=== PATIENT | female | born 1975 | race Caucasian/White ===

== ENCOUNTER 2017-11-20 14:51 | Inpatient (IN) | payer MEDICAID ==
[2017-11-20] VITALS (16 sets, daily range): BP systolic 81–92; BP diastolic 41–55; PULSE 96–120; RESP 16–24; TEMP 97.2–97.6; O2SAT 93–99
[~2017-11-20] VITALS: Ht 157.5 cm; Wt 65.0 kg
--- NOTE | 2017-11-20 15:23 | PD ---
HPI Chief Complaint: GI Complaint Time Seen by Provider: 15:18 Travel History International Travel<30 days: No Contact w/Intl Traveler<30days: No Traveled to known affect area: No History of Present Illness HPI 42-year-old female presents with her mother for evaluation of abdominal pain and distention, yellowing skin and eyes, lower extremity edema. Symptoms initially started 2-3 weeks ago. She reports that she was hospitalized at [facility] at that time. She reports that she was told that she had hepatitis and pancreatitis. She was eventually discharged with prescriptions for Lasix, oxycodone, Librium, ursodiol, pentoxifyline. Over the past few days her symptoms have worsened in the stool prompted evaluation. She reports generalized abdominal pain, aching, worse when eating. She reports a long-standing history of alcoholism however she has not had any alcohol in the past 2 weeks. She reports that she recently relocated here from [place]. Denies fevers, chills, chest pain, nausea or vomiting, diarrhea or constipation. She has no other complaints at this time. [facility] Past Medical History Diminished Hearing: No Hepatitis: Yes ?: Not Social History Alcohol Use: Yes Tobacco Use: Yes Substance Use: No Allergies-Medications (Allergen,Severity, Reaction): Coded Allergies: No Known Allergies (Unverified , 11/20/17) Reported Meds & Prescriptions Reported Meds & Active Scripts Active Reported Ursodiol 300 Mg Cap 300 Mg PO BID Chlordiazepoxide HCl 10 Mg Capsule 1 Cap PO BID Pentoxifylline ER (Pentoxifylline) 400 Mg Tab 400 Mg PO TID Lasix (Furosemide) 20 Mg Tab 20 Mg PO DAILY Oxycodone (Oxycodone HCl) 5 Mg Cap 5 Mg PO HS PRN Review of Systems Except as stated in HPI: all other systems reviewed are Neg Physical Exam Narrative GENERAL: Chronically ill-appearing female in no acute distress SKIN: Warm and dry. Jaundiced HEAD: Atraumatic. Normocephalic. EYES: Pupils equal and round. Positive scleral icterus. ENT: No nasal bleeding or discharge. Mucous membranes pink and moist. NECK: Trachea midline. No JVD. CARDIOVASCULAR: Regular rate and rhythm. No murmur appreciated. RESPIRATORY: No accessory muscle use. Clear to auscultation. Breath sounds equal bilaterally. GASTROINTESTINAL: Abdomen distended, generalized tenderness to palpation, prominent hepatomegaly noted. MUSCULOSKELETAL: No obvious deformities. 2+ lower extremity edema. NEUROLOGICAL: Awake and alert. No obvious cranial nerve deficits. Motor grossly within normal limits. Normal speech. PSYCHIATRIC: Appropriate mood and affect; insight and judgment normal. Data Data Last Documented VS Vital Signs Date Time Temp Pulse Resp B/P (MAP) Pulse Ox O2 Delivery O2 Flow Rate FiO2 11/20/17 18:14 107 21 89/44 (59) 97 Room Air 11/20/17 14:55 97.6 Orders Orders Complete Blood Count With Diff (11/20/17 15:18) Comprehensive Metabolic Panel (11/20/17 15:18) Lipase (11/20/17 15:18) Prothrombin Time / Inr (Pt) (11/20/17 15:18) Act Partial Throm Time (Ptt) (11/20/17 15:18) Urinalysis - C+S If Indicated (11/20/17 15:18) Ct Abd/Pel W Iv Contrast(Rout) (11/20/17 15:18) Iv Access Insert/Monitor (11/20/17 15:18) Ecg Monitoring (11/20/17 15:18) Oximetry (11/20/17 15:18) Sodium Chloride 0.9% Flush (Ns Flush) (11/20/17 15:30) Chest, Single Ap (11/20/17 15:18) Ed Urine Pregnancytest Poc (11/20/17 15:18) Ammonia (11/20/17 15:18) Sodium Chlorid 0.9% 500 Ml Inj (Ns 500 M (11/20/17 15:30) Electrocardiogram (11/20/17 ) Potassium Chlor 20 Meq Premix (Kcl 20 Me (11/20/17 17:45) Potassium Chloride (Kcl) (11/20/17 17:45) Magnesium (Mg) (11/20/17 16:12) Iohexol 350 Inj (Omnipaque 350 Inj) (11/20/17 19:05) Diet Regular Basic (11/21/17 Breakfast) Diet Regular Basic (11/20/17 Dinner) Admit Order (Ed Use Only) (11/20/17 19:58) Labs Laboratory Tests Test 11/20/17 15:20 11/20/17 16:12 11/20/17 16:50 White Blood Count 14.0 TH/MM3 Red Blood Count 2.68 MIL/MM3 Hemoglobin 10.5 GM/DL Hematocrit 29.0 % Mean Corpuscular Volume 108.3 FL Mean Corpuscular Hemoglobin 39.2 PG Mean Corpuscular Hemoglobin Concent 36.1 % Red Cell Distribution Width 16.2 % Platelet Count 686 TH/MM3 Mean Platelet Volume 8.8 FL Neutrophils (%) (Auto) 83.9 % Lymphocytes (%) (Auto) 10.4 % Monocytes (%) (Auto) 4.8 % Eosinophils (%) (Auto) 0.3 % Basophils (%) (Auto) 0.6 % Neutrophils # (Auto) 11.8 TH/MM3 Lymphocytes # (Auto) 1.5 TH/MM3 Monocytes # (Auto) 0.7 TH/MM3 Eosinophils # (Auto) 0.0 TH/MM3 Basophils # (Auto) 0.1 TH/MM3 CBC Comment AUTO DIFF Differential Total Cells Counted 100 Neutrophils % (Manual) 84 % Band Neutrophils % 3 % Lymphocytes % 8 % Monocytes % 4 % Eosinophils % 1 % Neutrophils # (Manual) 12.2 TH/MM3 Differential Comment FINAL DIFF MANUAL Toxic Granulation 1+ Toxic Vacuolation PRESENT Platelet Estimate HIGH Platelet Morphology Comment NORMAL Spherocytes 2+ Ovalocytes 1+ Prothrombin Time 16.1 SEC Prothromb Time International Ratio 1.6 RATIO Activated Partial Thromboplast Time 36.4 SEC Blood Urea Nitrogen 4 MG/DL Creatinine 0.39 MG/DL Random Glucose 81 MG/DL Total Protein 5.1 GM/DL Albumin 1.6 GM/DL Calcium Level 7.4 MG/DL Magnesium Level 1.9 MG/DL Alkaline Phosphatase 125 U/L Aspartate Amino Transf (AST/SGOT) 139 U/L Alanine Aminotransferase (ALT/SGPT) 39 U/L Total Bilirubin 10.3 MG/DL Sodium Level 132 MEQ/L Potassium Level 2.4 MEQ/L Chloride Level 92 MEQ/L Carbon Dioxide Level 34.1 MEQ/L Anion Gap 6 MEQ/L Estimat Glomerular Filtration Rate 182 ML/MIN Protein Corrected Calcium 8.5 MG/DL Ammonia 27 MCMOL/L Lipase 61 U/L Urine Color DARK-BROWN Urine Turbidity HAZY Urine pH 5.5 Urine Specific [place] 1.011 Urine Protein NEG mg/dL Urine Glucose (UA) NEG mg/dL Urine Ketones NEG mg/dL Urine Occult Blood NEG Urine Nitrite NEG Urine Bilirubin LARGE Urine Urobilinogen 2.0 MG/DL Urine Leukocyte Esterase NEG Urine RBC 1 /hpf Urine WBC LESS THAN 1 /hpf Urine Squamous Epithelial Cells 3 /hpf Urine Amorphous Sediment RARE Urine Bacteria OCC /hpf Urine Hyaline Casts 12 /lpf Urine Mucus MANY /lpf Microscopic Urinalysis Comment CULT NOT INDICATED MDM Medical Decision Making Medical Screen Exam Complete: Yes Emergency Medical Condition: Yes Medical Record Reviewed: Yes Differential Diagnosis Cirrhosis, SBP, dehydration, electrolyte abnormality Narrative Course Patient was placed on ECG monitored pulse oximetry. She was hypotensive on initial examination and therefore IV fluid bolus has been ordered. Lab work, chest x-ray, CT abdomen and pelvis were ordered. CONCLUSION: 1. Prominent hepatomegaly with diffusely abnormal heterogeneous enhancement of the liver parenchyma and pruning of the distal portal vein branches. There is also subtle nodularity of hepatic contour. Overall, findings are most consistent with hepatitis. Differential considerations include diffuse infiltrative hepatocellular carcinoma. Correlation with clinical presentation and alpha-fetoprotein levels is recommended. 2. Mild splenomegaly and trace amount of ascites consistent with some degree of portal hypertension. 1. Lab work notable for diabetes count of 14, hemoglobin 10.5, potassium 2.4, calcium 7.4, total bilirubin 10.3, albumin 1.6. The patient was given IV and oral potassium. Her blood pressure remains persistently low after 1 L of IV fluid. Her os recent blood pressure was 91/54. The patient will be admitted for correction of her electrolytes. Diagnosis Primary Impression: Hypokalemia Additional Impression: Cirrhosis Admitting Information Admitting Physician Requests: Admit You Jovel Nov 20, 2017 15:23
[2017-11-20] MEDS ORDERED: SODIUM CHLORID 0.9% 500 ML INJ 500 ML IV ONE (15:30)
[2017-11-20] MEDS ORDERED: SODIUM CHLORIDE 0.9% FLUSH 10 ML FLUSH IV FLUSH PRN ×2 (15:30→20:45)
--- NOTE | 2017-11-20 15:47 | RADRPT ---
EXAM DATE/TIME: 11/20/2017 15:31 [facility] COMPARISON: No previous studies available for comparison. INDICATIONS : Short of breath MEDICAL HISTORY : Hepatitis. SURGICAL HISTORY : None. ENCOUNTER: Initial ACUITY: 1 day PAIN SCORE: 0/10 LOCATION: chest FINDINGS: A single view of the chest demonstrates the lungs to be symmetrically aerated without evidence of mas s, infiltrate or effusion. The cardiomediastinal contours are unremarkable. Osseous structures are intact. CONCLUSION: The lungs are clear. Benito Whiteside MD on November 20, 2017 at 15:45 Board Certified Radiologist. This report was verified electronically.
[2017-11-20 16:01] LABS: AUTOMATED NEUTROPHIL # 11.8 TH/MM3 (1.8-7.7); BASOPHIL # 0.1 TH/MM3 (0-0.2); BASOPHIL % 0.6 % (0.0-2.0); EOSINOPHIL % 0.3 % (0.0-4.0); HEMOGLOBIN 10.5 GM/DL (11.6-15.3); LYMPH % 10.4 % (9.0-44.0); LYMPHOCYTE # 1.5 TH/MM3 (1.0-4.8); MEAN CELL VOLUME 108.3 FL (80.0-100.0); MEAN CORPUSCULAR HEMOGLOBIN 39.2 PG (27.0-34.0); MEAN PLATELET VOLUME 8.8 FL (7.0-11.0); MONO % 4.8 % (0.0-8.0); MONOCYTE # 0.7 TH/MM3 (0-0.9); NEUT % 83.9 % (16.0-70.0); PLATELET COUNT 686 TH/MM3 (150-450); RED BLOOD COUNT 2.68 MIL/MM3 (4.00-5.30); RED CELL DISTRIBUTION WIDTH 16.2 % (11.6-17.2)
[2017-11-20 16:07] LABS: MEAN CORPUSCULAR HGB CONC 36.1 % (32.0-36.0)
[2017-11-20 16:42] LABS: BANDS 3 % (0-6); LYMPHOCYTES 8 % (9-44); MONOCYTES 4 % (0-8); NEUTROPHIL # MANUAL DIFF 12.2 TH/MM3 (1.8-7.7); POLYS (SEG NEUTROPHILS) 84 % (16-70)
[2017-11-20 16:43] LABS: OVALOCYTES 1+ (NORMAL); SPHEROCYTES 2+ (NORMAL); TOXIC GRANULATION 1+ (NORMAL)
[2017-11-20 16:44] LABS: TOXIC VACUOLATION PRESENT (NONE SEEN)
[2017-11-20 16:59] LABS: INTERNATIONAL NORMALIZED RATIO 1.6 RATIO; PROTHROMBIN TIME - PATIENT 16.1 SEC (9.8-11.6)
[2017-11-20 17:16] LABS: ALBUMIN 1.6 GM/DL (3.4-5.0); BICARBONATE 34.1 MEQ/L (21.0-32.0); CALCIUM 7.4 MG/DL (8.5-10.1); CALCIUM-PROTEIN CORRECTED 8.5 MG/DL (8.5-10.1); CREATININE 0.39 MG/DL (0.50-1.00); TOTAL BILIRUBIN ADULT 10.3 MG/DL (0.2-1.0); TOTAL PROTEIN 5.1 GM/DL (6.4-8.2)
[2017-11-20 17:34] LABS: AMORPHOUS SEDIMENT, URINE RARE; BACTERIA, URINE OCC /hpf; BILIRUBIN, URINE LARGE (NEG); BLOOD, URINE NEG (NEG); GLUCOSE,URINE NEG (NEG); HYALINE CAST, URINE 12 /lpf (RARE); KETONE, URINE NEG (NEG); MUCUS URINE MANY /lpf (OCC); NITRITE,URINE NEG (NEG); PH, URINE 5.5 (5.0-8.5); SQUAMOUS EPITHELIAL CELL URINE 3 /hpf (0-5); URINE COLOR DARK-BROWN (YELLW/STRAW); URINE LEUKOCYTE ESTERASE NEG (NEG)
[2017-11-20] MEDS ORDERED: POTASSIUM CHLORIDE 20 MEQ CONTROLLED RELEASE TAB PO ONE (17:45)
[2017-11-20] MEDS ORDERED: POTASSIUM CHLOR 20 MEQ PREMIX 100 ML IV ONE (17:45)
[2017-11-20] MEDS ORDERED: OXYC1CAP PO (18:50)
[2017-11-20] MEDS ORDERED: CHLO10CA5 PO (18:50)
[2017-11-20] MEDS ORDERED: URSO300C2 PO (18:50)
[2017-11-20] MEDS ORDERED: PENT400T PO (18:50)
[2017-11-20] MEDS ORDERED: FURO1TAB62 PO (18:50)
[2017-11-20] MEDS ORDERED: IOHEXOL 350 MG/ML 10 ML VIAL (for RAD DIAG) IVCONTRAST ONE (19:05)
[2017-11-20 19:11] LABS: MAGNESIUM 1.9 MG/DL (1.5-2.5)
--- NOTE | 2017-11-20 19:43 | RADRPT ---
EXAM DATE/TIME: 11/20/2017 19:00 [facility] COMPARISON: No previous studies available for comparison. INDICATIONS : Abdominal pain, distention and jaundice. IV CONTRAST: 100 cc Omnipaque 350 (iohexol) IV ORAL CONTRAST: No oral contrast ingested. RADIATION DOSE: 6.57 CTDIvol (mGy) MEDICAL HISTORY : Hepatitis. SURGICAL HISTORY : None. ENCOUNTER: Initial ACUITY: 4 - 6 days PAIN SCALE: 7/10 LOCATION: Abdomen. TECHNIQUE: Volumetric scanning of the abdomen and pelvis was performed. Using automated exposure control and ad justment of the mA and/or kV according to patient size, radiation dose was kept as low as reasonably achievable to obtain optimal diagnostic quality images. DICOM format image data is available electro nically for review and comparison. FINDINGS: LOWER LUNGS: Very small right and trace left pleural effusion. Associated airspace disease at the lung bases. LIVER: Diffusely heterogeneous enhancement of the liver with prominent hepatomegaly. There is nodularity of the hepatic contour. The central portal vein is patent although distal branches demonstrate pruning. SPLEEN: Spleen is markedly enlarged measuring up to 12.5 cm. PANCREAS: Within normal limits. KIDNEYS: Subcentimeter cystic lesion in the mid right kidney is too small to fully characterize. Kidneys are o therwise unremarkable. ADRENAL GLANDS: Within normal limits. VASCULAR: There is no aortic aneurysm. BOWEL/MESENTERY: The stomach, small bowel, and colon demonstrate no acute abnormality. Small ascites with fluid predom inantly along the margin of the liver and in the deep pelvis. ABDOMINAL WALL: Within normal limits. RETROPERITONEUM: There is no lymphadenopathy. BLADDER: No wall thickening or mass. REPRODUCTIVE: Within normal limits. INGUINAL: There is no lymphadenopathy or hernia. MUSCULOSKELETAL: Within normal limits for patient age. CONCLUSION: 1. Prominent hepatomegaly with diffusely abnormal heterogeneous enhancement of the liver parenchyma a nd pruning of the distal portal vein branches. There is also subtle nodularity of hepatic contour. Ov erall, findings are most consistent with hepatitis. Differential considerations include diffuse infil trative hepatocellular carcinoma. Correlation with clinical presentation and alpha-fetoprotein levels is recommended. 2. Mild splenomegaly and trace amount of ascites consistent with some degree of portal hypertension. 1. Fer Good MD on November 20, 2017 at 19:36 Board Certified Radiologist. This report was verified electronically.
[2017-11-20] MEDS ORDERED: SODIUM CHLOR 0.9% 1000 ML INJ 1,000 ML IV SCH (20:38)
[2017-11-20] MEDS ORDERED: LACTULOSE SYRUP 20 GM/30 ML CUP PO PRN (20:45)
[2017-11-20] MEDS ORDERED: ONDANSETRON HCL 4 MG/2 ML VIAL IVP PRN (20:45)
[2017-11-20] MEDS ORDERED: POTASSIUM CHLORIDE 25 MEQ EFFERVESCENT TAB PO ONE (20:45)
[2017-11-20] MEDS ORDERED: LORazepam 2 MG TAB PO PRN (20:45)
[2017-11-20] MEDS ORDERED: FLUMAZENIL 0.5 MG/5 ML VIAL IV PUSH PRN (20:45)
[2017-11-20] MEDS ORDERED: LORazepam 1 MG TAB PO PRN (20:45)
[2017-11-20] MEDS ORDERED: LORazepam 2 MG/ML VIAL IV PUSH PRN ×4 (20:45)
[2017-11-20] MEDS ORDERED: NALOXONE HCL 0.4 MG/ML AMP IV PUSH PRN (20:45)
--- NOTE | 2017-11-20 21:23 | HHI.HP ---
HPI Service [facility] Primary Care Physician No Primary Care Physician Admission Diagnosis hypokalemia, cirrhosis Diagnoses: Travel History International Travel<30 Days: No Contact w/Intl Traveler <30 Da: No Traveled to Known Affected Are: No History of Present Illness 42-year-old female with a past medical history significant for alcohol abuse presents to the emergency department for the evaluation of abdominal distention and pain. The patient has a history of pancreatitis with her first episode occurring in July. She was seen in [facility] last week with similar complaints. She believes at the time that she was having a repeat episode of pancreatitis. At [facility] she was diagnosed with alcoholic hepatitis and cirrhosis. Since her discharge, the patient's abdominal distention and jaundice have worsened. She endorses associated anorexia. She complains of foot and ankle edema. She was started on Lasix at [facility] and her potassium today is 2.4. She has not had any alcohol intake since moving in with her mother 2 weeks ago. She was taking scheduled Librium which was prescribed to her at [facility]. Patient denies chest pain or shortness of breath. Denies vomiting or diarrhea. No fever/chills. Review of Systems Except as stated in HPI: all other systems reviewed are Neg Past Family Social History Past Medical History Alcohol abuse Recent diagnosis of alcoholic hepatitis and cirrhosis Past Surgical History Reported Medications Reported Meds & Active Scripts Active Reported Ursodiol 300 Mg Cap 300 Mg PO BID Chlordiazepoxide HCl 10 Mg Capsule 1 Cap PO BID Pentoxifylline ER (Pentoxifylline) 400 Mg Tab 400 Mg PO TID Lasix (Furosemide) 20 Mg Tab 20 Mg PO DAILY Oxycodone (Oxycodone HCl) 5 Mg Cap 5 Mg PO HS PRN Allergies: Coded Allergies: No Known Allergies (Unverified , 11/20/17) Family History Negative for CAD/DM Social History Smokes approximately a half a pack per day. Was drinking 8-10 airplane bottles of liquor with 1-2 glasses of wine daily until 2 weeks ago. Remote history of marijuana. Denies any other illicit drug use Physical Exam Vital Signs Vital Signs Date Time Temp Pulse Resp B/P (MAP) Pulse Ox O2 Delivery O2 Flow Rate FiO2 11/20/17 21:10 107 18 86/52 (63) 99 Nasal Cannula 2.00 11/20/17 18:14 107 21 89/44 (59) 97 Room Air 11/20/17 17:15 102 20 89/52 (64) 97 Room Air 11/20/17 16:15 96 21 92/51 (65) 96 Room Air 11/20/17 15:45 106 91/50 (64) 11/20/17 15:30 110 87/52 (64) 11/20/17 15:19 110 16 84/41 (55) 96 Room Air 11/20/17 14:55 97.6 120 24 81/45 (57) 97 Physical Exam GENERAL: female lying in bed SKIN: No rashes, ecchymoses or lesions. Cool and dry. Jaundiced. HEAD: Atraumatic. Normocephalic. No temporal or scalp tenderness. EYES: Pupils equal round and reactive. Extraocular motions intact. Positive scleral icterus. No injection or drainage. ENT: Nose without bleeding, purulent drainage or septal hematoma. Throat without erythema, tonsillar hypertrophy or exudate. Uvula midline. Airway patent. NECK: Trachea midline. No JVD or lymphadenopathy. Supple, nontender, no meningeal signs. CARDIOVASCULAR: Regular rate and rhythm without murmurs, gallops, or rubs. RESPIRATORY: Clear to auscultation. Breath sounds equal bilaterally. No wheezes , rales, or rhonchi. GASTROINTESTINAL: Abdomen is protuberant and dull to percussion. Diffusely tender to palpation. Positive hepatomegaly. MUSCULOSKELETAL: 2+ edema to the ankle. No calf tenderness. NEUROLOGICAL: Awake and alert. Cranial nerves II through XII intact. Motor and sensory grossly within normal limits. Normal speech. Laboratory Laboratory Tests Test 11/20/17 15:20 11/20/17 16:12 11/20/17 16:50 White Blood Count 14.0 Red Blood Count 2.68 Hemoglobin 10.5 Hematocrit 29.0 Mean Corpuscular Volume 108.3 Mean Corpuscular Hemoglobin 39.2 Mean Corpuscular Hemoglobin Concent 36.1 Red Cell Distribution Width 16.2 Platelet Count 686 Mean Platelet Volume 8.8 Neutrophils (%) (Auto) 83.9 Lymphocytes (%) (Auto) 10.4 Monocytes (%) (Auto) 4.8 Eosinophils (%) (Auto) 0.3 Basophils (%) (Auto) 0.6 Neutrophils # (Auto) 11.8 Lymphocytes # (Auto) 1.5 Monocytes # (Auto) 0.7 Eosinophils # (Auto) 0.0 Basophils # (Auto) 0.1 CBC Comment AUTO DIFF Differential Total Cells Counted 100 Neutrophils % (Manual) 84 Band Neutrophils % 3 Lymphocytes % 8 Monocytes % 4 Eosinophils % 1 Neutrophils # (Manual) 12.2 Differential Comment FINAL DIFF MANUAL Toxic Granulation 1+ Toxic Vacuolation PRESENT Platelet Estimate HIGH Platelet Morphology Comment NORMAL Spherocytes 2+ Ovalocytes 1+ Prothrombin Time 16.1 Prothromb Time International Ratio 1.6 Activated Partial Thromboplast Time 36.4 Blood Urea Nitrogen 4 Creatinine 0.39 Random Glucose 81 Total Protein 5.1 Albumin 1.6 Calcium Level 7.4 Magnesium Level 1.9 Alkaline Phosphatase 125 Aspartate Amino Transf (AST/SGOT) 139 Alanine Aminotransferase (ALT/SGPT) 39 Total Bilirubin 10.3 Sodium Level 132 Potassium Level 2.4 Chloride Level 92 Carbon Dioxide Level 34.1 Anion Gap 6 Estimat Glomerular Filtration Rate 182 Protein Corrected Calcium 8.5 Ammonia 27 Lipase 61 Urine Color DARK-BROWN Urine Turbidity HAZY Urine pH 5.5 Urine Specific [place] 1.011 Urine Protein NEG Urine Glucose (UA) NEG Urine Ketones NEG Urine Occult Blood NEG Urine Nitrite NEG Urine Bilirubin LARGE Urine Urobilinogen 2.0 Urine Leukocyte Esterase NEG Urine RBC 1 Urine WBC LESS THAN 1 Urine Squamous Epithelial Cells 3 Urine Amorphous Sediment RARE Urine Bacteria OCC Urine Hyaline Casts 12 Urine Mucus MANY Microscopic Urinalysis Comment CULT NOT INDICATED Result Diagram: 11/20/17 1520 11/20/17 1612 Caprini VTE Risk Assessment Caprini VTE Risk Assessment: No/Low Risk (score <= 1) Caprini Risk Assessment Model Point Value = 1 Point Value = 2 Point Value = 3 Point Value = 5 Age 41-60 Minor surgery BMI > 25 kg/m2 Swollen legs Varicose veins or History of unexplained or recurrent spontaneous Oral contraceptives or hormone replacement Sepsis (< 1 month) Serious lung disease, including pneumonia (< 1 month) Abnormal pulmonary function Acute myocardial infarction Congestive heart failure (< 1 month) History of inflammatory bowel disease Medical patient at bed rest Age 61-74 Arthroscopic surgery Major open surgery (> 45 min) Laparoscopic surgery (> 45 min) Malignancy Confined to bed (> 72 hours) Immobilizing plaster cast Central venous access Age >= 75 History of VTE Family history of VTE Factor V Leiden Prothrombin [id number] Lupus anticoagulant Anticardiolipin antibodies Elevated serum homocysteine Heparin-induced thrombocytopenia Other congenital or acquired thrombophilia Stroke (< 1 month) Elective arthroplasty Hip, pelvis, or leg fracture Acute spinal cord injury (< 1 month) Prophylaxis Regimen Total Risk Factor Score Risk Level Prophylaxis Regimen 0-1 Low Early ambulation 2 Moderate Order ONE of the following: *Sequential Compression Device (SCD) *Heparin 5000 units SQ BID 3-4 Higher Order ONE of the following medications: *Heparin 5000 units SQ TID *Enoxaparin/Lovenox 40 mg SQ daily (WT < 150 kg, CrCl > 30 mL/min) *Enoxaparin/Lovenox 30 mg SQ daily (WT < 150 kg, CrCl > 10-29 mL/min) *Enoxaparin/Lovenox 30 mg SQ BID (WT < 150 kg, CrCl > 30 mL/min) AND/OR *Sequential Compression Device (SCD) 5 or more Highest Order ONE of the following medications: *Heparin 5000 units SQ TID (Preferred with Epidurals) *Enoxaparin/Lovenox 40 mg SQ daily (WT < 150 kg, CrCl > 30 mL/min) *Enoxaparin/Lovenox 30 mg SQ daily (WT < 150 kg, CrCl > 10-29 mL/min) *Enoxaparin/Lovenox 30 mg SQ BID (WT < 150 kg, CrCl > 30 mL/min) AND *Sequential Compression Device (SCD) Assessment and Plan Assessment and Plan Assessment/plan: 1. Hepatitis/hepatomegaly/transaminitis/jaundice Likely secondary to alcohol use however review of records from [facility] shows that no hepatitis profile has been ordered, hepatitis profile pending CT of the abdomen and pelvis significant for prominent hepatomegaly most consistent with hepatitis however hepatocellular carcinoma cannot be excluded. Trace amount of ascites present. AFP pending Gastroenterology consulted, appreciate recommendations 2. Hypokalemia Patient recently started on Lasix without potassium supplementation Holding Lasix IV and by mouth potassium replacement Monitor BMP 3. Alcohol abuse Patient reports she has not had anything to drink in over 2 weeks however has been on scheduled Librium given to her by [place] protocol Monitor for signs of withdrawal FEN Regular diet Electrolytes: As above Ambulation/SCDs Physician Certification 2 Midnight Certification Type: Admission for Inpatient Services Order for Inpatient Services The services are ordered in accordance with Medicare regulations or non- Medicare payer requirements, as applicable. In the case of services not specified as inpatient-only, they are appropriately provided as inpatient services in accordance with the 2-midnight benchmark. Estimated LOS (days): 2 2 days is the estimated time the patient will need to remain in the hospital, assuming treatment plan goals are met and no additional complications. Post-Hospital Plan: Not yet determined Lashell Mcgarry MD Nov 20, 2017 21:22
[2017-11-20] MEDS: SODIUM CHLORIDE 0.9% FLUSH 10 ML FLUSH IV FLUSH SCH (22:26)
[2017-11-21] VITALS (7 sets, daily range): BP systolic 88–98; BP diastolic 46–58; PULSE 106–120; RESP 17; TEMP 98.2–99.4; O2SAT 92–98
[2017-11-21 06:12] LABS: AUTOMATED NEUTROPHIL # 9.9 TH/MM3 (1.8-7.7); BASOPHIL # 0.2 TH/MM3 (0-0.2); BASOPHIL % 1.3 % (0.0-2.0); EOSINOPHIL # 0.1 TH/MM3 (0-0.4); HEMATOCRIT 25.1 % (35.0-46.0); HEMOGLOBIN 8.7 GM/DL (11.6-15.3); LYMPH % 12.2 % (9.0-44.0); LYMPHOCYTE # 1.5 TH/MM3 (1.0-4.8); MEAN CELL VOLUME 109.7 FL (80.0-100.0); MEAN CORPUSCULAR HGB CONC 34.7 % (32.0-36.0); MONO % 6.8 % (0.0-8.0); MONOCYTE # 0.8 TH/MM3 (0-0.9); NEUT % 78.7 % (16.0-70.0); PLATELET COUNT 447 TH/MM3 (150-450); RED BLOOD COUNT 2.29 MIL/MM3 (4.00-5.30); RED CELL DISTRIBUTION WIDTH 15.6 % (11.6-17.2); WHITE BLOOD COUNT 12.5 TH/MM3 (4.0-11.0)
[2017-11-21 06:35] LABS: ALBUMIN 1.5 GM/DL (3.4-5.0); AST (GOT) 142 U/L (15-37); BICARBONATE 30.2 MEQ/L (21.0-32.0); BLOOD UREA NITROGEN 3 MG/DL (7-18); CALCIUM 7.5 MG/DL (8.5-10.1); CHLORIDE 96 MEQ/L (98-107); GLOMERULAR FILTRATION RATE 177 ML/MIN (>89); GLUCOSE,RANDOM 80 MG/DL (74-106); SODIUM (NA) 135 MEQ/L (136-145)
[2017-11-21 06:45] LABS: ALKALINE PHOSPHATASE 118 U/L (45-117); ALT (GPT) 41 U/L (10-53); TOTAL BILIRUBIN ADULT 10.5 MG/DL (0.2-1.0); TOTAL PROTEIN 5.2 GM/DL (6.4-8.2)
[2017-11-21] MEDS ORDERED: POTASSIUM CHLORIDE 20 MEQ CONTROLLED RELEASE TAB PO ONE ×2 (08:00→14:45)
[2017-11-21] MEDS: THIAMINE HCL 100 MG TAB PO SCH (08:14)
[2017-11-21] MEDS: MULTIVITAMINS/MINERALS THERAPEUTIC TAB PO SCH (08:14)
[2017-11-21] MEDS: FOLIC ACID 1 MG TAB PO SCH (08:14)
[2017-11-21] MEDS: SODIUM CHLORIDE 0.9% FLUSH 10 ML FLUSH IV FLUSH SCH ×2 (08:14→19:42)
--- NOTE | 2017-11-21 08:29 | PD.CONS ---
HPI History of Present Illness This is a 42 year old with no diagnosed medical history. She was recently evaluated by our service at [facility] for complaints of jaundice and abdominal distention. She had an extensive work up as follows: ASMA (+), low titer, YEHUDA, AMA, hepatitis panel, and celiac panel negative. Ceruloplasmin-28 Alpha-1 antitrypsin-201. Due to an elevated ferritin level pt was also tested for hemochromatosis which came back negative. CT abdomen revealed --> Marked hepatomegaly with hepatic steatosis. No normal enhancement of the pancreas with minimal peripancreatic fluid suggesting actue interstitial edematous pancreatitis, pt also had an elevated lipase and hypocalcemia. Labs at time of discharge were more elevated then at present, previously Alk phos-182 AST-186 ALT-37 T bili-9.7. Pt presented to the ER yesterday with complaints of worsening abdominal pain, distention, and jaundice. Pt reports she is anorexic and only eats a few bites of food here and there. She denies any ETOH since last admission, however previously heavy ETOH, reported a pint of vodka daily for the past six month. Also a smoker, half a pack a day. Has never had EGD or colonoscopy. (Jaz Moore) PFSH Past Medical History Alcohol abuse Recent diagnosis of alcoholic hepatitis and cirrhosis Past Surgical History (Jza Moore) Coded Allergies: No Known Allergies (Unverified , 11/20/17) Family History Negative for CAD/DM Social History Smokes approximately a half a pack per day. Was drinking 8-10 airplane bottles of liquor with 1-2 glasses of wine daily until 2 weeks ago. Remote history of marijuana. Denies any other illicit drug use (Jaz Moore) Review of Systems Gastrointestinal: COMPLAINS OF: Abdominal pain, Nausea, Anorexia, Swelling of Abdomen, DENIES: Black stools, Bloody stools, Vomiting, Difficulty Swallowing, Odynophagia, Heartburn, Hematemesis (Jaz Moore) GI Exam Vitals I&O Vital Signs Date Time Temp Pulse Resp B/P (MAP) Pulse Ox O2 Delivery O2 Flow Rate FiO2 11/21/17 04:55 98.4 112 17 93/52 (66) 92 11/21/17 04:00 106 11/20/17 23:57 105 11/20/17 22:40 97.2 112 18 92/42 (59) 93 11/20/17 22:33 110 11/20/17 21:10 107 18 86/52 (63) 99 Nasal Cannula 2.00 11/20/17 20:45 102 89/54 (66) 11/20/17 20:15 104 86/53 (64) 11/20/17 20:00 110 89/54 (66) 11/20/17 19:45 110 91/54 (66) 11/20/17 19:15 110 18 90/55 (67) 11/20/17 18:14 107 21 89/44 (59) 97 Room Air 11/20/17 17:15 102 20 89/52 (64) 97 Room Air 11/20/17 16:15 96 21 92/51 (65) 96 Room Air 11/20/17 15:45 106 91/50 (64) 11/20/17 15:30 110 87/52 (64) 11/20/17 15:19 110 16 84/41 (55) 96 Room Air 11/20/17 14:55 97.6 120 24 81/45 (57) 97 I/O 11/20/17 11/20/17 11/20/17 11/21/17 11/21/17 11/21/17 07:00 15:00 23:00 07:00 15:00 23:00 Intake Total 600 ml 360 ml Balance 600 ml 360 ml Intake Oral 360 ml IV Total 600 ml # Voids 2 4 # Bowel Movements 0 Imaging Last Impressions Chest X-Ray 11/20/178 Signed Impressions: Service Date/Time: October 15:31 - CONCLUSION: The lungs are clear. Benito Whiteside MD Abdomen/Pelvis CT 11/20/17 1518 Signed Impressions: Service Date/Time: October 19:00 - CONCLUSION: 1. Prominent hepatomegaly with diffusely abnormal heterogeneous enhancement of the liver parenchyma and pruning of the distal portal vein branches. There is also subtle nodularity of hepatic contour. Overall, findings are most consistent with hepatitis. Differential considerations include diffuse infiltrative hepatocellular carcinoma. Correlation with clinical presentation and alpha-fetoprotein levels is recommended. 2. Mild splenomegaly and trace amount of ascites consistent with some degree of portal hypertension. 1. Fer Good MD Laboratory Test 11/20/17 15:20 11/20/17 16:12 11/20/17 16:50 11/21/17 05:50 White Blood Count 14.0 TH/MM3 12.5 TH/MM3 Red Blood Count 2.68 MIL/MM3 2.29 MIL/MM3 Hemoglobin 10.5 GM/DL 8.7 GM/DL Hematocrit 29.0 % 25.1 % Mean Corpuscular Volume 108.3 FL 109.7 FL Mean Corpuscular Hemoglobin 39.2 PG 38.0 PG Mean Corpuscular Hemoglobin Concent 36.1 % 34.7 % Red Cell Distribution Width 16.2 % 15.6 % Platelet Count 686 TH/MM3 447 TH/MM3 Mean Platelet Volume 8.8 FL 8.0 FL Neutrophils (%) (Auto) 83.9 % 78.7 % Lymphocytes (%) (Auto) 10.4 % 12.2 % Monocytes (%) (Auto) 4.8 % 6.8 % Eosinophils (%) (Auto) 0.3 % 1.0 % Basophils (%) (Auto) 0.6 % 1.3 % Neutrophils # (Auto) 11.8 TH/MM3 9.9 TH/MM3 Lymphocytes # (Auto) 1.5 TH/MM3 1.5 TH/MM3 Monocytes # (Auto) 0.7 TH/MM3 0.8 TH/MM3 Eosinophils # (Auto) 0.0 TH/MM3 0.1 TH/MM3 Basophils # (Auto) 0.1 TH/MM3 0.2 TH/MM3 CBC Comment AUTO DIFF DIFF FINAL Differential Total Cells Counted 100 Neutrophils % (Manual) 84 % Band Neutrophils % 3 % Lymphocytes % 8 % Monocytes % 4 % Eosinophils % 1 % Neutrophils # (Manual) 12.2 TH/MM3 Differential Comment FINAL DIFF MANUAL Toxic Granulation 1+ Toxic Vacuolation PRESENT Platelet Estimate HIGH Platelet Morphology Comment NORMAL Spherocytes 2+ Ovalocytes 1+ Prothrombin Time 16.1 SEC Prothromb Time International Ratio 1.6 RATIO Activated Partial Thromboplast Time 36.4 SEC Blood Urea Nitrogen 4 MG/DL 3 MG/DL Creatinine 0.39 MG/DL 0.40 MG/DL Random Glucose 81 MG/DL 80 MG/DL Total Protein 5.1 GM/DL 5.2 GM/DL Albumin 1.6 GM/DL 1.5 GM/DL Calcium Level 7.4 MG/DL 7.5 MG/DL Magnesium Level 1.9 MG/DL Alkaline Phosphatase 125 U/L 118 U/L Aspartate Amino Transf (AST/SGOT) 139 U/L 142 U/L Alanine Aminotransferase (ALT/SGPT) 39 U/L 41 U/L Total Bilirubin 10.3 MG/DL 10.5 MG/DL Sodium Level 132 MEQ/L 135 MEQ/L Potassium Level 2.4 MEQ/L 3.2 MEQ/L Chloride Level 92 MEQ/L 96 MEQ/L Carbon Dioxide Level 34.1 MEQ/L 30.2 MEQ/L Anion Gap 6 MEQ/L 9 MEQ/L Estimat Glomerular Filtration Rate 182 ML/MIN 177 ML/MIN Protein Corrected Calcium 8.5 MG/DL Ammonia 27 MCMOL/L Lipase 61 U/L Urine Color DARK-BROWN Urine Turbidity HAZY Urine pH 5.5 Urine Specific [place] 1.011 Urine Protein NEG mg/dL Urine Glucose (UA) NEG mg/dL Urine Ketones NEG mg/dL Urine Occult Blood NEG Urine Nitrite NEG Urine Bilirubin LARGE Urine Urobilinogen 2.0 MG/DL Urine Leukocyte Esterase NEG Urine RBC 1 /hpf Urine WBC LESS THAN 1 /hpf Urine Squamous Epithelial Cells 3 /hpf Urine Amorphous Sediment RARE Urine Bacteria OCC /hpf Urine Hyaline Casts 12 /lpf Urine Mucus MANY /lpf Microscopic Urinalysis Comment CULT NOT INDICATED Tumor Marker Alpha Fetoprotein 7.3 NG/ML Physical Examination HEENT: Normocephalic; atraumatic (+) icterus CHEST: Even/unlabored CARDIAC: RRR ABDOMEN: Distended, firm, mild epigastric TTP, bowel sounds active EXTREMITIES: BLE edema SKIN: (+) jaundice GMAT TUTOR: No focal deficits; alert and oriented times three. (Jaz Moore) Assessment and Plan Plan Assessment: - Transaminitis and imaging consistent with hepatitis, HCC can not be excluded. Recently evaluated by our service for similar symptoms. Work up as follows: ASMA (+), low titer, YEHUDA, Hepatitis panel, AMA, and celiac panel negative. Ceruloplasmin-28 Alpha-1 antitrypsin-201. Due to an elevated ferritin level pt was also tested for hemochromatosis which came back negative. CT abdomen revealed --> Marked hepatomegaly with hepatic steatosis. No normal enhancement of the pancreas with minimal peripancreatic fluid suggesting acute interstitial edematous pancreatitis, pt also had an elevated lipase and hypocalcemia. Labs at time of discharge were more elevated then at present, previously Alk phos-182 AST-186 ALT-37 T bili- 9.7. CT abdomen and pelvis W IV contrast (11/20) --> Prominent hepatomegaly with diffusely abnormal heterogeneous enhancement of the liver parenchyma and pruning of the distal portal vein branches. There is also subtle nodularity of hepatic contour. Overall findings most consistent with hepatitis. Differential consideration include diffuse infiltrative HCC. Mild splenomegaly and trace amount of ascites consistent with some degree of portal HTN. Labs currently: AST-142 ALT-41 Alk phos-118 T bili-10.5 DF-29 - Coagulopathy- INR 1.6 - ETOH abuse- reports no ETOH since being DCd from last week, previously drinking a pint of vodka daily for the past six months - given previous negative liver HEIN this is likely the cause of symptoms. - Mid back pain, between shoulder blades, states chronic since first being diagnosed with pancreatitis in July. Denies acid reflux, heartburn, epigastric pain. Plan: Ursodiol 300mg BID Xifaxan Possible EGD on Friday depending on course AFP pending Monitor labs Further recommendations based on clinical course Pt has been seen and examined by myself and Dr. Nagel and this note is written on his behalf (Jaz Moore) Physician Comments Seen and examined with CHRISTINE, previous hein at [facility] noted. EGD on friday. Consider liver biopsy next week if not better. Suspect etoh related liver disease. Solumederol 40mg ivpb bid. Dr. Pina to follow. Thank you (Fiona Nagel MD) Jaz Moore Nov 21, 2017 08:29 Fiona Nagel MD Nov 21, 2017 19:25
[2017-11-21] MEDS: URSODIOL 300 MG CAP PO SCH ×2 (10:00→19:47)
[2017-11-21 11:47] LABS: HEPATITIS A AB IGM NEGATIVE (NEGATIVE); HEPATITIS B CORE AB IGM NEGATIVE (NEGATIVE); HEPATITIS B SURFACE ANTIGEN NEGATIVE (NEGATIVE); HEPATITIS C AB IgG NEGATIVE (NEGATIVE)
--- NOTE | 2017-11-21 12:58 | HHI.PR ---
Subjective Remarks Follow-up cirrhosis/hepatitis/hypokalemia 11/21/17-patient seen and examined, complains of abdominal pain as well as back pain. No nausea and vomiting. Alert and oriented 3. Objective Vitals Vital Signs Date Time Temp Pulse Resp B/P (MAP) Pulse Ox O2 Delivery O2 Flow Rate FiO2 11/21/17 12:00 99.4 117 17 96/58 (71) 97 11/21/17 08:00 98.2 110 17 88/46 (60) 95 11/21/17 04:55 98.4 112 17 93/52 (66) 92 11/21/17 04:00 106 11/20/17 23:57 105 11/20/17 22:40 97.2 112 18 92/42 (59) 93 11/20/17 22:33 110 11/20/17 21:10 107 18 86/52 (63) 99 Nasal Cannula 2.00 11/20/17 20:45 102 89/54 (66) 11/20/17 20:15 104 86/53 (64) 11/20/17 20:00 110 89/54 (66) 11/20/17 19:45 110 91/54 (66) 11/20/17 19:15 110 18 90/55 (67) 11/20/17 18:14 107 21 89/44 (59) 97 Room Air 11/20/17 17:15 102 20 89/52 (64) 97 Room Air 11/20/17 16:15 96 21 92/51 (65) 96 Room Air 11/20/17 15:45 106 91/50 (64) 11/20/17 15:30 110 87/52 (64) 11/20/17 15:19 110 16 84/41 (55) 96 Room Air 11/20/17 14:55 97.6 120 24 81/45 (57) 97 I/O 11/20/17 11/20/17 11/20/17 11/21/17 11/21/17 11/21/17 07:00 15:00 23:00 07:00 15:00 23:00 Intake Total 600 ml 360 ml Balance 600 ml 360 ml Intake Oral 360 ml IV Total 600 ml # Voids 2 4 # Bowel Movements 0 Result Diagram: 11/21/17 0550 11/21/17 0550 Imaging Last Impressions Chest X-Ray 11/20/17 1518 Signed Impressions: Service Date/Time: October 15:31 - CONCLUSION: The lungs are clear. Benito Whiteside MD Abdomen/Pelvis CT 11/20/17 1518 Signed Impressions: Service Date/Time: October 19:00 - CONCLUSION: 1. Prominent hepatomegaly with diffusely abnormal heterogeneous enhancement of the liver parenchyma and pruning of the distal portal vein branches. There is also subtle nodularity of hepatic contour. Overall, findings are most consistent with hepatitis. Differential considerations include diffuse infiltrative hepatocellular carcinoma. Correlation with clinical presentation and alpha-fetoprotein levels is recommended. 2. Mild splenomegaly and trace amount of ascites consistent with some degree of portal hypertension. 1. Fer Good MD Objective Remarks GENERAL: NAD SKIN: Warm and dry. HEAD: Normocephalic. EYES: No scleral icterus. No injection or drainage. NECK: Supple, trachea midline. No JVD or lymphadenopathy. CARDIOVASCULAR: Regular rate and rhythm without murmurs, gallops, or rubs. RESPIRATORY: Breath sounds equal bilaterally. No accessory muscle use. GASTROINTESTINAL: Abdomen soft, non-tender,distended. +BS MUSCULOSKELETAL: No cyanosis, or edema. BACK:tender without obvious deformity. No CVA tenderness. A/P Assessment and Plan 42-year-old female with 1. Hepatitis/hepatomegaly/transaminitis/jaundice Likely secondary to alcohol use Hepatitis profile pending AFP pending Gastroenterology input appreciated pending EGD next Friday11/24/17 Continue with Ursodial and add Rifaximin 2. Hypokalemia Replace electrolytes and monitor 3. Alcohol abuse Rally pack CIWA protocol Monitor for signs of withdrawal Jose Miguel Panda MD Nov 21, 2017 12:58
--- NOTE | 2017-11-21 13:49 | EKG ---
Date Performed: 11/20/2017 Time Performed: 17:51:01 PTAGE: 42 years EKG: SINUS TACHYCARDIA NONSPECIFIC T-WAVE ABNORMALITY ABNORMAL RHYTHM ECG NO PREVIOUS TRACING 11/20/2017 1351 DOCTOR: Jessica Shabazz Interpretating Date/Time 11/21/2017 13:48:00
[2017-11-21] MEDS ORDERED: IBUPROFEN 600 MG TAB PO ONE (17:00)
[2017-11-21] MEDS: RIFAXIMIN 550 MG TAB PO SCH (19:47)
[2017-11-22] VITALS (10 sets, daily range): BP systolic 85–102; BP diastolic 42–50; PULSE 107–126; RESP 1–18; TEMP 96.9–100.6; O2SAT 93–97
[2017-11-22 07:16] LABS: AUTOMATED NEUTROPHIL # 10.1 TH/MM3 (1.8-7.7); BASOPHIL # 0.2 TH/MM3 (0-0.2); BASOPHIL % 1.6 % (0.0-2.0); EOSINOPHIL # 0.2 TH/MM3 (0-0.4); EOSINOPHIL % 1.3 % (0.0-4.0); HEMATOCRIT 25.3 % (35.0-46.0); HEMOGLOBIN 8.6 GM/DL (11.6-15.3); LYMPH % 12.2 % (9.0-44.0); LYMPHOCYTE # 1.6 TH/MM3 (1.0-4.8); MEAN CELL VOLUME 110.6 FL (80.0-100.0); MEAN CORPUSCULAR HEMOGLOBIN 37.7 PG (27.0-34.0); MEAN CORPUSCULAR HGB CONC 34.1 % (32.0-36.0); MEAN PLATELET VOLUME 8.2 FL (7.0-11.0); MONO % 6.7 % (0.0-8.0); MONOCYTE # 0.9 TH/MM3 (0-0.9); NEUT % 78.2 % (16.0-70.0); PLATELET COUNT 418 TH/MM3 (150-450); RED BLOOD COUNT 2.29 MIL/MM3 (4.00-5.30); RED CELL DISTRIBUTION WIDTH 15.7 % (11.6-17.2); WHITE BLOOD COUNT 12.8 TH/MM3 (4.0-11.0)
[2017-11-22 07:37] LABS: ALBUMIN 1.5 GM/DL (3.4-5.0); ALKALINE PHOSPHATASE 123 U/L (45-117); ALT (GPT) 39 U/L (10-53); AST (GOT) 139 U/L (15-37); BICARBONATE 30.9 MEQ/L (21.0-32.0); BLOOD UREA NITROGEN 4 MG/DL (7-18); CALCIUM 7.9 MG/DL (8.5-10.1); CHLORIDE 100 MEQ/L (98-107); CREATININE 0.43 MG/DL (0.50-1.00); GLOMERULAR FILTRATION RATE 163 ML/MIN (>89); GLUCOSE,RANDOM 74 MG/DL (74-106); SODIUM (NA) 136 MEQ/L (136-145); TOTAL PROTEIN 5.5 GM/DL (6.4-8.2)
[2017-11-22 07:49] LABS: TOTAL BILIRUBIN ADULT 10.4 MG/DL (0.2-1.0)
[2017-11-22] MEDS: THIAMINE HCL 100 MG TAB PO SCH (08:05)
[2017-11-22] MEDS: SODIUM CHLORIDE 0.9% FLUSH 10 ML FLUSH IV FLUSH SCH ×2 (08:05→21:08)
[2017-11-22] MEDS: FOLIC ACID 1 MG TAB PO SCH (08:05)
[2017-11-22] MEDS: RIFAXIMIN 550 MG TAB PO SCH ×2 (08:05→21:09)
[2017-11-22] MEDS: MULTIVITAMINS/MINERALS THERAPEUTIC TAB PO SCH (08:05)
[2017-11-22] MEDS: URSODIOL 300 MG CAP PO SCH ×2 (08:05→21:09)
--- NOTE | 2017-11-22 12:43 | HHI.GIFU ---
Subjective Remarks Patient's resting in the bed Complaints of generalized abdominal tautness and pain, feels it is getting larger Low-grade fever Family in room Able to eat small amounts of food without nausea or vomiting (Lori Diallo) Objective Vitals I&O Vital Signs Date Time Temp Pulse Resp B/P (MAP) Pulse Ox O2 Delivery O2 Flow Rate FiO2 11/22/17 11:50 99.2 119 17 101/46 (64) 97 11/22/17 08:00 97.3 107 17 85/50 (62) 95 11/22/17 07:36 108 11/22/17 07:19 Room Air 11/22/17 04:00 96.9 111 18 87/43 (58) 96 11/22/17 03:40 108 11/22/17 00:00 98.5 111 18 85/45 (58) 95 11/21/17 23:44 112 11/21/17 19:14 119 11/21/17 16:00 99.2 120 17 98/46 (63) 98 I/O 11/21/17 11/21/17 11/21/17 11/22/17 11/22/17 11/22/17 06:59 14:59 22:59 06:59 14:59 22:59 Intake Total 360 ml 480 ml 500 ml 480 ml Balance 360 ml 480 ml 500 ml 480 ml Intake Oral 360 ml 480 ml 500 ml 480 ml # Voids 4 4 2 3 # Bowel Movements 0 3 2 Laboratory Laboratory Tests Test 11/22/17 06:25 White Blood Count 12.8 Red Blood Count 2.29 Hemoglobin 8.6 Hematocrit 25.3 Mean Corpuscular Volume 110.6 Mean Corpuscular Hemoglobin 37.7 Mean Corpuscular Hemoglobin Concent 34.1 Red Cell Distribution Width 15.7 Platelet Count 418 Mean Platelet Volume 8.2 Neutrophils (%) (Auto) 78.2 Lymphocytes (%) (Auto) 12.2 Monocytes (%) (Auto) 6.7 Eosinophils (%) (Auto) 1.3 Basophils (%) (Auto) 1.6 Neutrophils # (Auto) 10.1 Lymphocytes # (Auto) 1.6 Monocytes # (Auto) 0.9 Eosinophils # (Auto) 0.2 Basophils # (Auto) 0.2 CBC Comment DIFF FINAL Differential Comment Blood Urea Nitrogen 4 Creatinine 0.43 Random Glucose 74 Total Protein 5.5 Albumin 1.5 Calcium Level 7.9 Alkaline Phosphatase 123 Aspartate Amino Transf (AST/SGOT) 139 Alanine Aminotransferase (ALT/SGPT) 39 Total Bilirubin 10.4 Sodium Level 136 Potassium Level 4.3 Chloride Level 100 Carbon Dioxide Level 30.9 Anion Gap 5 Estimat Glomerular Filtration Rate 163 Imaging Last Impressions Chest X-Ray 11/20/17 151 Signed Impressions: Service Date/Time: October 15:31 - CONCLUSION: The lungs are clear. Benito Whiteside MD Abdomen/Pelvis CT 11/20/171517 Signed Impressions: Service Date/Time: October 19:00 - CONCLUSION: 1. Prominent hepatomegaly with diffusely abnormal heterogeneous enhancement of the liver parenchyma and pruning of the distal portal vein branches. There is also subtle nodularity of hepatic contour. Overall, findings are most consistent with hepatitis. Differential considerations include diffuse infiltrative hepatocellular carcinoma. Correlation with clinical presentation and alpha-fetoprotein levels is recommended. 2. Mild splenomegaly and trace amount of ascites consistent with some degree of portal hypertension. 1. Fer Good MD Physical Exam HEENT: Pupils round and reactive to light; normocephalic; atraumatic; + jaundice. Lean NECK: Neck is supple, no JVD CHEST: Chest is clear to auscultation and percussion. CARDIAC: Tachycardia ABDOMEN: taut, distended, realized light tenderness especially in right upper quadrant, bowel sounds are present in all four quadrants. EXTREMITIES: No clubbing, cyanosis, or edema. SKIN: Icteric; no rash; CABLE ASSEMBLER: No focal deficits; alert and oriented times three. (Lori Diallo) Assessment and Plan Plan Assessment: History - Transaminitis and imaging consistent with hepatitis, HCC can not be excluded. Recently evaluated by our service for similar symptoms. Work up as follows: ASMA (+), low titer, YEHUDA, Hepatitis panel, AMA, and celiac panel negative. Ceruloplasmin-28 Alpha-1 antitrypsin-201. Due to an elevated ferritin level pt was also tested for hemochromatosis which came back negative. CT abdomen revealed --> Marked hepatomegaly with hepatic steatosis. No normal enhancement of the pancreas with minimal peripancreatic fluid suggesting acute interstitial edematous pancreatitis, pt also had an elevated lipase and hypocalcemia. Labs at time of discharge were more elevated then at present, previously Alk phos-182 AST-186 ALT-37 T bili- 9.7. CT abdomen and pelvis W IV contrast (11/20) --> Prominent hepatomegaly with diffusely abnormal heterogeneous enhancement of the liver parenchyma and pruning of the distal portal vein branches. There is also subtle nodularity of hepatic contour. Overall findings most consistent with hepatitis. Differential consideration include diffuse infiltrative HCC. Mild splenomegaly and trace amount of ascites consistent with some degree of portal HTN. History of pancreatitis back in July with recovery patient states Labs currently: Bilirubin 10.4, A ST 139, ALT 39, alpha-fetoprotein 7.3 - Coagulopathy- INR 1.6 - ETOH abuse- reports no ETOH since being DCd from last week, previously drinking a pint of vodka daily for the past six months - given previous negative liver HEIN this is likely the cause of symptoms. - Mid back pain, feels these symptoms are related to the abdominal bloating and tightness Plan: Measure abdominal girth Ursodiol 300mg BID Xifaxan Probable EGD on Friday AFP 7.3 Monitor labs Further recommendations based on clinical course Pt has been seen and examined by myself and Dr. Urban note is written on his behalf (Lori Diallo) Plan patient was seen and examined, agree with above note plan for EGD and possible liver Bx friday, contniue current care, most likely Etoh related. (Elise Pian MD) Lori Diallo Nov 22, 2017 12:43 Elise Pina MD Nov 22, 2017 18:42
--- NOTE | 2017-11-22 18:41 | HHI.PR ---
Subjective Remarks The patient states that she feels terrible and that she has increasing abdominal pain and distention. The patient denies any fevers, however states has a very low appetite. Patient had a low-grade temp of 100.0. Patient is tachycardic. Objective Vitals Vital Signs Date Time Temp Pulse Resp B/P (MAP) Pulse Ox O2 Delivery O2 Flow Rate FiO2 11/22/17 16:00 100.0 122 1 99/45 (63) 93 11/22/17 11:50 99.2 119 17 101/46 (64) 97 11/22/17 08:00 97.3 107 17 85/50 (62) 95 11/22/17 07:36 108 11/22/17 07:19 Room Air 11/22/17 04:00 96.9 111 18 87/43 (58) 96 11/22/17 03:40 108 11/22/17 00:00 98.5 111 18 85/45 (58) 95 11/21/17 23:44 112 11/21/17 19:14 119 I/O 11/21/17 11/21/17 11/21/17 11/22/17 11/22/17 11/22/17 07:00 15:00 23:00 07:00 15:00 23:00 Intake Total 360 ml 480 ml 500 ml 480 ml 480 ml Balance 360 ml 480 ml 500 ml 480 ml 480 ml Intake Oral 360 ml 480 ml 500 ml 480 ml 480 ml # Voids 4 4 2 3 5 # Bowel Movements 0 3 2 0 Result Diagram: 11/22/17 0625 11/22/17 0625 Imaging Last Impressions Chest X-Ray 11/20/171517 Signed Impressions: Service Date/Time: October 15:31 - CONCLUSION: The lungs are clear. Benito Whiteside MD Abdomen/Pelvis CT 11/20/178 Signed Impressions: Service Date/Time: October 19:00 - CONCLUSION: 1. Prominent hepatomegaly with diffusely abnormal heterogeneous enhancement of the liver parenchyma and pruning of the distal portal vein branches. There is also subtle nodularity of hepatic contour. Overall, findings are most consistent with hepatitis. Differential considerations include diffuse infiltrative hepatocellular carcinoma. Correlation with clinical presentation and alpha-fetoprotein levels is recommended. 2. Mild splenomegaly and trace amount of ascites consistent with some degree of portal hypertension. 1. Fer Good MD Objective Remarks GENERAL: Mild distress due to pain. No respiratory distress. SKIN: (+) Jaundice. HEAD: Normocephalic. EYES: (+) scleral icterus. NECK: Supple, trachea midline. No JVD or lymphadenopathy. CARDIOVASCULAR: Regular rate and rhythm without murmurs, gallops, or rubs. RESPIRATORY: Breath sounds equal bilaterally. No accessory muscle use. GASTROINTESTINAL: Abdomen soft, diffusely tender to palpation, distended with positive ascitic fluid wave on abdominal exam. MUSCULOSKELETAL: No cyanosis, or edema. BACK:tender without obvious deformity. No CVA tenderness. Procedures None Medications and IVs Current Medications Medications (Trade) Dose Ordered Sig/Rebecca Route Start Time Stop Time Status Last Admin (NS Flush) 2 ml UNSCH PRN IV FLUSH 11/20/17 20:45 (NS Flush) 2 ml BID IV FLUSH 11/20/17 21:00 11/22/17 08:05 (Zofran Inj) 4 mg Q6H PRN IVP 11/20/17 20:45 (Narcan Inj) 0.4 mg UNSCH PRN IV PUSH 11/20/17 20:45 (Lactulose Liq) 30 ml DAILY PRN PO 11/20/17 20:45 (Folate) 1 mg DAILY PO 11/21/17 09:00 11/26/17 08:59 11/22/17 08:05 (Vitamin B1) 100 mg DAILY PO 11/21/17 09:00 11/22/17 08:05 (Theragran M Tab) 1 tab DAILY PO 11/21/17 09:00 11/26/17 08:59 11/22/17 08:05 (Romazicon Inj) 0.2 mg Q1M PRN IV PUSH 11/20/17 20:45 (Ativan) 1 mg Q4H PRN PO 11/20/17 20:45 (Ativan Inj) 1 mg Q4H PRN IV PUSH 11/20/17 20:45 (Ativan) 2 mg Q2H PRN PO 11/20/17 20:45 (Ativan Inj) 2 mg Q2H PRN IV PUSH 11/20/17 20:45 (Ativan Inj) 2 mg Q1H PRN IV PUSH 11/20/17 20:45 (Ativan Inj) 2 mg Q15M PRN IV PUSH 11/20/17 20:45 (Actigall) 300 mg Q12HR PO 11/21/17 10:00 11/22/17 08:05 (Xifaxan) 550 mg BID PO 11/21/17 21:00 11/22/17 08:05 A/P Problem List: (1) Hepatitis ICD Code: K75.9 - Inflammatory liver disease, unspecified Plan: Likely secondary to alcohol use. GI consulted. CT abdomen and pelvis W IV contrast (11/20) --> Prominent hepatomegaly with diffusely abnormal heterogeneous enhancement of the liver parenchyma and pruning of the distal portal vein branches. There is also subtle nodularity of hepatic contour. Overall findings most consistent with hepatitis. Differential consideration include diffuse infiltrative HCC. Mild splenomegaly and trace amount of ascites consistent with some degree of portal HTN. Gastroenterology input appreciated pending EGD next Friday11/24/17 Continue with Ursodial and add Rifaximin (2) Transaminitis ICD Code: R74.0 - Nonspecific elevation of levels of transaminase and lactic acid dehydrogenase [LDH] Plan: AST elevated at 139. ALT within normal range. As above. Monitor liver function tests. (3) Jaundice ICD Code: R17 - Unspecified jaundice Plan: Jaundice secondary to liver cirrhosis with an elevated bilirubin of 10.3 which is remaining stable. (4) Hypokalemia ICD Code: E87.6 - Hypokalemia Status: Resolved Plan: Status post replacement. K4.3. (5) Coagulopathy ICD Code: D68.9 - Coagulation defect, unspecified Plan: INR elevated at 1.6. I will place some vitamin K IV (6) Macrocytic anemia ICD Code: D53.9 - Nutritional anemia, unspecified Plan: Acute on chronic anemia. Hemoglobin trended down from 2.5-8.6. Continue to monitor CBC. Monitor INR daily (7) Ascites ICD Code: R18.8 - Other ascites Plan: The patient has worsening abdominal pain. At a low-grade temp with a temperature of 100.0 today. I will start the patient on empiric IV antibiotics. We'll order abdominal paracentesis in a.m. Start on Lasix and spironolactone. (8) SIRS (systemic inflammatory response syndrome) ICD Code: R65.10 - Systemic inflammatory response syndrome (SIRS) of non- infectious origin without acute organ dysfunction Plan: SIRS present on admission, patient with tachycardia and leukocytosis. UA negative. Suspect possible spontaneous bacterial peritonitis. We'll place on empiric IV Rocephin. Assessment and Plan DVT prophylaxis: SCDs, no chemoprophylaxis given risk for patient of having esophageal varices. Discharge Planning For paracentesis in a.m. Problem Qualifiers (1) Ascites: Qualified Codes: K70.31 - Alcoholic cirrhosis of liver with ascites Amado Graham MD Nov 22, 2017 18:41
[2017-11-22] MEDS ORDERED: PHYTONADIONE INJ 10 MG in SODIUM CHLORIDE 0.9% INJ 50 ML IV ONE (18:45)
[2017-11-22] MEDS ORDERED: SPIRONOLACTONE 100 MG TAB PO ONE (19:15)
[2017-11-22] MEDS ORDERED: KETOROLAC TROMETHAMINE 30 MG/ML (IVP) VIAL IV PUSH PRN (19:15)
[2017-11-22] MEDS: KETOROLAC TROMETHAMINE 30 MG/ML (IVP) VIAL IV PUSH PRN (21:08)
[2017-11-22] MEDS: FUROSEMIDE 20 MG TAB PO SCH (21:09)
[2017-11-23] VITALS (8 sets, daily range): BP systolic 84–108; BP diastolic 44–58; PULSE 100–112; RESP 16–20; TEMP 97.9–98.7; O2SAT 93–98
[2017-11-23 08:24] LABS: PROTHROMBIN TIME - PATIENT 13.8 SEC (9.8-11.6)
[2017-11-23 08:26] LABS: AUTOMATED NEUTROPHIL # 11.5 TH/MM3 (1.8-7.7); BASOPHIL # 0.3 TH/MM3 (0-0.2); BASOPHIL % 1.8 % (0.0-2.0); EOSINOPHIL # 0.1 TH/MM3 (0-0.4); EOSINOPHIL % 0.9 % (0.0-4.0); HEMATOCRIT 27.7 % (35.0-46.0); HEMOGLOBIN 9.3 GM/DL (11.6-15.3); LYMPH % 14.5 % (9.0-44.0); LYMPHOCYTE # 2.2 TH/MM3 (1.0-4.8); MEAN CELL VOLUME 110.8 FL (80.0-100.0); MEAN CORPUSCULAR HEMOGLOBIN 37.3 PG (27.0-34.0); MEAN CORPUSCULAR HGB CONC 33.7 % (32.0-36.0); MEAN PLATELET VOLUME 7.9 FL (7.0-11.0); MONO % 6.1 % (0.0-8.0); MONOCYTE # 0.9 TH/MM3 (0-0.9); NEUT % 76.7 % (16.0-70.0); PLATELET COUNT 432 TH/MM3 (150-450); RED CELL DISTRIBUTION WIDTH 15.8 % (11.6-17.2)
[2017-11-23 08:28] LABS: INTERNATIONAL NORMALIZED RATIO 1.4 RATIO
[2017-11-23 08:32] LABS: ALBUMIN 1.6 GM/DL (3.4-5.0); ALT (GPT) 38 U/L (10-53); AST (GOT) 145 U/L (15-37); BICARBONATE 29.5 MEQ/L (21.0-32.0); BLOOD UREA NITROGEN 4 MG/DL (7-18); CALCIUM 8.4 MG/DL (8.5-10.1); CHLORIDE 100 MEQ/L (98-107); CREATININE 0.52 MG/DL (0.50-1.00); GLOMERULAR FILTRATION RATE 131 ML/MIN (>89); GLUCOSE,RANDOM 83 MG/DL (74-106); MAGNESIUM 2.1 MG/DL (1.5-2.5); PHOSPHORUS 2.4 MG/DL (2.5-4.9); SODIUM (NA) 135 MEQ/L (136-145)
[2017-11-23 08:35] LABS: ALKALINE PHOSPHATASE 126 U/L (45-117); TOTAL BILIRUBIN ADULT 9.5 MG/DL (0.2-1.0); TOTAL PROTEIN 5.3 GM/DL (6.4-8.2)
[2017-11-23] MEDS: RIFAXIMIN 550 MG TAB PO SCH ×2 (08:35→19:31)
[2017-11-23] MEDS: THIAMINE HCL 100 MG TAB PO SCH (08:35)
[2017-11-23] MEDS: KETOROLAC TROMETHAMINE 30 MG/ML (IVP) VIAL IV PUSH PRN ×2 (08:35→14:50)
[2017-11-23] MEDS: FOLIC ACID 1 MG TAB PO SCH (08:35)
[2017-11-23] MEDS: MULTIVITAMINS/MINERALS THERAPEUTIC TAB PO SCH (08:35)
[2017-11-23] MEDS: URSODIOL 300 MG CAP PO SCH ×2 (08:35→19:31)
[2017-11-23] MEDS: SODIUM CHLORIDE 0.9% FLUSH 10 ML FLUSH IV FLUSH SCH ×2 (08:36→19:32)
[2017-11-23] MEDS: FUROSEMIDE 20 MG TAB PO SCH (08:38)
[2017-11-23] MEDS: SPIRONOLACTONE 100 MG TAB PO SCH (08:38)
--- NOTE | 2017-11-23 08:40 | RADRPT ---
EXAM DATE/TIME: 11/23/2017 07:57 [place] COMPARISON: No previous studies available for comparison. INDICATIONS : Ascites. MEDICAL HISTORY : Gastroesophageal reflux disease. Hepatitis. Uterine fibroids. Numbness. Back pain. Anxiety. SURGICAL HISTORY : section. ENCOUNTER: Initial ACUITY: 1 day PAIN SCORE: 3/10 LOCATION: Abdomen. AREA EVALUATED: Abdominal quadrants. FINDINGS: Imaging of the abdomen and pelvis was performed to evaluate for ascites for possible paracentesis. T here is mild ascites seen from the liver and in the midline of the pelvis. This does not appear to be a large volume for aspiration. CONCLUSION: Mild ascites. Lei Lynn MD on November 23, 2017 at 8:37 Board Certified Radiologist. This report was verified electronically.
--- NOTE | 2017-11-23 13:10 | HHI.GIFU ---
Subjective Remarks Resting in the bed head of bed elevated at 60 She is eating hamburger, appetite fair but states that she will be in pain after eating. Still has abdominal bloating Abdominal girth 41. Checked today for ascites but no planned paracentesis for now (Lori Diallo) Objective Vitals I&O Vital Signs Date Time Temp Pulse Resp B/P (MAP) Pulse Ox O2 Delivery O2 Flow Rate FiO2 11/23/17 12:00 98.2 106 18 87/58 (68) 94 11/23/17 11:08 110 11/23/17 08:00 98.3 109 17 84/52 (63) 95 11/23/17 03:53 100 11/23/17 00:00 98.7 111 20 89/44 (59) 96 11/22/17 23:52 111 11/22/17 21:05 94 Nasal Cannula 2.00 11/22/17 20:00 100.6 126 18 102/42 (62) 96 11/22/17 19:43 126 11/22/17 16:00 100.0 122 1 99/45 (63) 93 I/O 11/22/17 11/22/17 11/22/17 11/23/17 11/23/17 11/23/17 07:00 15:00 23:00 07:00 15:00 23:00 Intake Total 480 ml 480 ml 531 ml 240 ml Balance 480 ml 480 ml 531 ml 240 ml Intake Oral 480 ml 480 ml 480 ml 240 ml IV Total 51 ml # Voids 3 5 2 2 # Bowel Movements 2 0 1 Laboratory Laboratory Tests Test 11/23/17 07:53 White Blood Count 15.0 Red Blood Count 2.50 Hemoglobin 9.3 Hematocrit 27.7 Mean Corpuscular Volume 110.8 Mean Corpuscular Hemoglobin 37.3 Mean Corpuscular Hemoglobin Concent 33.7 Red Cell Distribution Width 15.8 Platelet Count 432 Mean Platelet Volume 7.9 Neutrophils (%) (Auto) 76.7 Lymphocytes (%) (Auto) 14.5 Monocytes (%) (Auto) 6.1 Eosinophils (%) (Auto) 0.9 Basophils (%) (Auto) 1.8 Neutrophils # (Auto) 11.5 Lymphocytes # (Auto) 2.2 Monocytes # (Auto) 0.9 Eosinophils # (Auto) 0.1 Basophils # (Auto) 0.3 CBC Comment DIFF FINAL Differential Comment Prothrombin Time 13.8 Prothromb Time International Ratio 1.4 Activated Partial Thromboplast Time 32.8 Blood Urea Nitrogen 4 Creatinine 0.52 Random Glucose 83 Total Protein 5.3 Albumin 1.6 Calcium Level 8.4 Phosphorus Level 2.4 Magnesium Level 2.1 Alkaline Phosphatase 126 Aspartate Amino Transf (AST/SGOT) 145 Alanine Aminotransferase (ALT/SGPT) 38 Lactate Dehydrogenase 189 Total Bilirubin 9.5 Sodium Level 135 Potassium Level 4.2 Chloride Level 100 Carbon Dioxide Level 29.5 Anion Gap 6 Estimat Glomerular Filtration Rate 131 Imaging Last Impressions Abdomen Ultrasound 11/23/17 0600 Signed Impressions: Service Date/Time: Thursday, November 23, 2017 07:57 - CONCLUSION: Mild ascites. Lei Lynn MD Chest X-Ray 11/20/171517 Signed Impressions: Service Date/Time: October 15:31 - CONCLUSION: The lungs are clear. Benito Whiteside MD Abdomen/Pelvis CT 11/20/171517 Signed Impressions: Service Date/Time: October 19:00 - CONCLUSION: 1. Prominent hepatomegaly with diffusely abnormal heterogeneous enhancement of the liver parenchyma and pruning of the distal portal vein branches. There is also subtle nodularity of hepatic contour. Overall, findings are most consistent with hepatitis. Differential considerations include diffuse infiltrative hepatocellular carcinoma. Correlation with clinical presentation and alpha-fetoprotein levels is recommended. 2. Mild splenomegaly and trace amount of ascites consistent with some degree of portal hypertension. 1. Fer Good MD Physical Exam HEENT: Pupils round and reactive to light; normocephalic; atraumatic; + jaundice. NECK: Neck is supple, no JVD CHEST: Chest is clear , but low volumes CARDIAC: Controlled heart rate ABDOMEN: taut, distended, realized light tenderness especially in right upper quadrant, bowel sounds are present in all four quadrants. EXTREMITIES: No clubbing, cyanosis, or edema. 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 Mild anxiety (Lori Diallo) Assessment and Plan Plan Plan Assessment: History - Transaminitis and imaging consistent with hepatitis, HCC can not be excluded. Probable alcohol-related. Hepatitis panel negative. Due to an elevated ferritin level pt was also tested for hemochromatosis which came back negative. CT abdomen revealed --> Marked hepatomegaly with hepatic steatosis. No normal enhancement of the pancreas with minimal peripancreatic fluid suggesting acute interstitial edematous pancreatitis, CT abdomen and pelvis W IV contrast (11/20) --> Prominent hepatomegaly with diffusely abnormal heterogeneous enhancement of the liver parenchyma and pruning of the distal portal vein branches. There is also subtle nodularity of hepatic contour. Overall findings most consistent with hepatitis. Differential consideration include diffuse infiltrative HCC. Mild splenomegaly and trace amount of ascites consistent with some degree of portal HTN. History of pancreatitis back in July with recovery patient states Labs currently: Hemoglobin 9.3, elevated WBC count 15,000 - Coagulopathy- INR 1.4 mild trending down - ETOH abuse- reports no ETOH since being DCd from last week, previously drinking a pint of vodka daily for the past six months - given previous negative liver HEIN this is likely the cause of symptoms. She states she will never drink again and wants to get well. Checked for marked ascites to 2017, continues to be mild fluid amount. No recommendation for paracentesis. Plan: Measure abdominal girth 41 today. Ursodiol 300mg BID Xifaxan EGD on Friday and biopsy Consent Nothing by mouth at midnight Monitor labs Supportive care Further recommendations based on clinical course Pt has been seen and examined by myself and Dr. Urban note is written on his behalf (Lori Diallo) Plan Patient was seen and examined, agree with above-noted, we will plan upper endoscopy tomorrow, according to ultrasound there was not enough fluid to tap according to her (Elise Pina MD) Lori Diallo Nov 23, 2017 13:10 Elise Pina MD Nov 23, 2017 17:14
[2017-11-23] MEDS ORDERED: cefTRIAXone INJ 2,000 MG in SODIUM CHLORIDE 0.9% INJ 100 ML IV SCH (16:00)
[2017-11-23] MEDS ORDERED: KETOROLAC TROMETHAMINE 30 MG/ML (IVP) VIAL IV PUSH PRN (16:15)
--- NOTE | 2017-11-23 16:16 | HHI.PR ---
Subjective Remarks Patient c/o midthoracic pain. Still c/o of abdominal pain 8-9/10 in intensity, complaints of abdominal distention. Denies nausea, vomiting or abdominal pain. Denies melena or hematochezia. The patient states that she has has been having diarrhea for the past few days. Objective Vitals Vital Signs Date Time Temp Pulse Resp B/P (MAP) Pulse Ox O2 Delivery O2 Flow Rate FiO2 11/23/17 12:00 98.2 106 18 87/58 (68) 94 11/23/17 11:08 110 11/23/17 08:00 98.3 109 17 84/52 (63) 95 11/23/17 03:53 100 11/23/17 00:00 98.7 111 20 89/44 (59) 96 11/22/17 23:52 111 11/22/17 21:05 94 Nasal Cannula 2.00 11/22/17 20:00 100.6 126 18 102/42 (62) 96 11/22/17 19:43 126 I/O 11/22/17 11/22/17 11/22/17 11/23/17 11/23/17 11/23/17 07:00 15:00 23:00 07:00 15:00 23:00 Intake Total 480 ml 480 ml 531 ml 240 ml 480 ml Balance 480 ml 480 ml 531 ml 240 ml 480 ml Intake Oral 480 ml 480 ml 480 ml 240 ml 480 ml IV Total 51 ml # Voids 3 5 2 2 4 # Bowel Movements 2 0 1 1 Result Diagram: 11/23/17 0753 11/23/17 0753 Imaging Last 72 hours Impressions Abdomen Ultrasound 11/23/17 0600 Signed Impressions: Service Date/Time: Thursday, November 23, 2017 07:57 - CONCLUSION: Mild ascites. Lei Lynn MD Objective Remarks GENERAL: Mild distress due to pain. No respiratory distress. SKIN: (+) Jaundice. HEAD: Normocephalic. EYES: (+) scleral icterus. NECK: Supple, trachea midline. No JVD or lymphadenopathy. CARDIOVASCULAR: Regular rate and rhythm without murmurs, gallops, or rubs. RESPIRATORY: Breath sounds equal bilaterally. No accessory muscle use. GASTROINTESTINAL: Abdomen soft, diffusely tender to palpation, distended with positive ascitic fluid wave on abdominal exam. MUSCULOSKELETAL: No cyanosis, or edema. BACK:tender without obvious deformity. No CVA tenderness. Procedures None Medications and IVs Current Medications Medications (Trade) Dose Ordered Sig/Rebecca Route Start Time Stop Time Status Last Admin (NS Flush) 2 ml UNSCH PRN IV FLUSH 11/20/17 20:45 (NS Flush) 2 ml BID IV FLUSH 11/20/17 21:00 11/23/17 08:36 (Zofran Inj) 4 mg Q6H PRN IVP 11/20/17 20:45 (Narcan Inj) 0.4 mg UNSCH PRN IV PUSH 11/20/17 20:45 (Lactulose Liq) 30 ml DAILY PRN PO 11/20/17 20:45 (Folate) 1 mg DAILY PO 11/21/17 09:00 11/26/17 08:59 11/23/17 08:35 (Vitamin B1) 100 mg DAILY PO 11/21/17 09:00 11/23/17 08:35 (Theragran M Tab) 1 tab DAILY PO 11/21/17 09:00 11/26/17 08:59 11/23/17 08:35 (Romazicon Inj) 0.2 mg Q1M PRN IV PUSH 11/20/17 20:45 (Ativan) 1 mg Q4H PRN PO 11/20/17 20:45 (Ativan Inj) 1 mg Q4H PRN IV PUSH 11/20/17 20:45 (Ativan) 2 mg Q2H PRN PO 11/20/17 20:45 (Ativan Inj) 2 mg Q2H PRN IV PUSH 11/20/17 20:45 (Ativan Inj) 2 mg Q1H PRN IV PUSH 11/20/17 20:45 (Ativan Inj) 2 mg Q15M PRN IV PUSH 11/20/17 20:45 (Actigall) 300 mg Q12HR PO 11/21/17 10:00 11/23/17 08:35 (Xifaxan) 550 mg BID PO 11/21/17 21:00 11/23/17 08:35 (Aldactone) 100 mg DAILY PO 11/23/17 09:00 (Lasix) 20 mg DAILY PO 11/22/17 19:15 11/22/17 21:09 (Vitamin K Inj) 10 mg DAILY SQ 11/23/17 15:30 11/23/17 16:31 (Oramorph Sr) 15 mg Q12HR PO 11/23/17 21:00 (Ultram) 50 mg Q6H PRN PO 11/23/17 16:15 11/23/17 16:37 (Toradol Inj) 30 mg Q6H PRN IV PUSH 11/23/17 16:15 11/28/17 16:14 A/P Problem List: (1) Hepatitis ICD Code: K75.9 - Inflammatory liver disease, unspecified Plan: Likely secondary to alcohol use. GI consulted. CT abdomen and pelvis W IV contrast (11/20) --> Prominent hepatomegaly with diffusely abnormal heterogeneous enhancement of the liver parenchyma and pruning of the distal portal vein branches. There is also subtle nodularity of hepatic contour. Overall findings most consistent with hepatitis. Differential consideration include diffuse infiltrative HCC. Mild splenomegaly and trace amount of ascites consistent with some degree of portal HTN. Gastroenterology input appreciated pending EGD next Friday11/24/17 Continue with Ursodiol and add Rifaximin 11/23 for EGD and biopsy in am. (2) Transaminitis ICD Code: R74.0 - Nonspecific elevation of levels of transaminase and lactic acid dehydrogenase [LDH] Plan: AST elevated at 145. ALT within normal range. As above. Monitor liver function tests. (3) Jaundice ICD Code: R17 - Unspecified jaundice Plan: Jaundice secondary to liver cirrhosis with an elevated bilirubin of 10.3 which is remaining stable. 11/23 bilirubin is trending down to 9.5. Continue to monitor bilirrubin. (4) Hypokalemia ICD Code: E87.6 - Hypokalemia Status: Resolved Plan: Status post replacement. K4.2. (5) Coagulopathy ICD Code: D68.9 - Coagulation defect, unspecified Plan: sp IV vitamin K 11/23 INR trending down from 1.6-1.4. Will place on subcutaneous vitamin K. Continue to monitor PT and INR. (6) Macrocytic anemia ICD Code: D53.9 - Nutritional anemia, unspecified Plan: Acute on chronic anemia. Hemoglobin trended down from 2.5-8.6. Continue to monitor CBC. Monitor INR daily (7) Ascites ICD Code: R18.8 - Other ascites Plan: 11/23 status post low-grade temperature of 100.0 on 11/22. Will hold off on starting empiric IV antibiotics given that the patient did not have much ascites and abdomen is very distended with diarrhea. Will check C. difficile toxin PCR. Abdominal paracentesis was not done since patient did not have enough fluid on ultrasound. Continue Lasix and spironolactone. (8) SIRS (systemic inflammatory response syndrome) ICD Code: R65.10 - Systemic inflammatory response syndrome (SIRS) of non- infectious origin without acute organ dysfunction Plan: SIRS present on admission, patient with tachycardia and leukocytosis. UA negative. 11/23 check C. difficile toxin PCR since patient has a very distended abdomen and diarrhea. If C. difficile is negative then will start the patient on empiric IV Rocephin if the fever continues. (9) Abdominal pain ICD Code: R10.9 - Unspecified abdominal pain Plan: Abdominal pain likely secondary to hepatitis and abdominal distention. Check c diff toxin PCR Patint currently on IV Toradol however still with pain. Will start patient on Oramorph 15 mg p.o. twice daily, tramadol as needed for pain and IV Toradol as needed for breakthrough pain. Assessment and Plan DVT prophylaxis: SCDs, no chemoprophylaxis given risk for patient of having esophageal varices. Discharge Planning For EGD and biopsy tomorrow. Continue to monitor on the medical floor. Problem Qualifiers (1) Ascites: Qualified Codes: K70.31 - Alcoholic cirrhosis of liver with ascites (2) Abdominal pain: Qualified Codes: R10.84 - Generalized abdominal pain Amado Graham MD Nov 23, 2017 16:16
[2017-11-23] MEDS: PHYTONADIONE 10 MG/ML VIAL SQ SCH (16:31)
[2017-11-23] MEDS: traMADol HCL 50 MG TAB PO PRN (16:37)
[2017-11-23] MEDS: MORPHINE SULFATE 15 MG CONTROLLED RELEASE TAB PO SCH (19:31)
[2017-11-23] MEDS ORDERED: diphenhydrAMINE HCL 50 MG CAP PO ONE (21:00)
[2017-11-24 02:27] VITALS: PULSE 103
[2017-11-24 04:00] VITALS: BP 89/51; PULSE 105; RESP 16; TEMP 98.2; O2SAT 93
[2017-11-24] MEDS: traMADol HCL 50 MG TAB PO PRN ×2 (05:22→19:43)
[2017-11-24 05:54] LABS: AUTOMATED NEUTROPHIL # 12.4 TH/MM3 (1.8-7.7); BASOPHIL # 0.3 TH/MM3 (0-0.2); BASOPHIL % 1.6 % (0.0-2.0); EOSINOPHIL # 0.1 TH/MM3 (0-0.4); EOSINOPHIL % 0.9 % (0.0-4.0); HEMATOCRIT 26.7 % (35.0-46.0); LYMPH % 14.5 % (9.0-44.0); LYMPHOCYTE # 2.4 TH/MM3 (1.0-4.8); MEAN CELL VOLUME 109.9 FL (80.0-100.0); MEAN CORPUSCULAR HGB CONC 33.6 % (32.0-36.0); MEAN PLATELET VOLUME 7.7 FL (7.0-11.0); MONO % 6.4 % (0.0-8.0); NEUT % 76.6 % (16.0-70.0); PLATELET COUNT 391 TH/MM3 (150-450); RED BLOOD COUNT 2.43 MIL/MM3 (4.00-5.30); RED CELL DISTRIBUTION WIDTH 15.6 % (11.6-17.2); WHITE BLOOD COUNT 16.2 TH/MM3 (4.0-11.0)
[2017-11-24 05:57] LABS: INTERNATIONAL NORMALIZED RATIO 1.3 RATIO; PROTHROMBIN TIME - PATIENT 13.3 SEC (9.8-11.6)
[2017-11-24 06:17] LABS: ALBUMIN 1.6 GM/DL (3.4-5.0); AST (GOT) 141 U/L (15-37); BICARBONATE 30.3 MEQ/L (21.0-32.0); BLOOD UREA NITROGEN 8 MG/DL (7-18); CALCIUM 8.1 MG/DL (8.5-10.1); CHLORIDE 97 MEQ/L (98-107); CREATININE 0.75 MG/DL (0.50-1.00); GLOMERULAR FILTRATION RATE 86 ML/MIN (>89); GLUCOSE,RANDOM 68 MG/DL (74-106); MAGNESIUM 2.1 MG/DL (1.5-2.5); PHOSPHORUS 2.5 MG/DL (2.5-4.9); SODIUM (NA) 133 MEQ/L (136-145)
[2017-11-24 06:29] LABS: ALKALINE PHOSPHATASE 119 U/L (45-117); ALT (GPT) 39 U/L (10-53); TOTAL BILIRUBIN ADULT 9.9 MG/DL (0.2-1.0); TOTAL PROTEIN 5.3 GM/DL (6.4-8.2)
[2017-11-24 08:00] VITALS: BP 85/47; PULSE 106; RESP 14; TEMP 97.3; O2SAT 90
[2017-11-24] MEDS: SPIRONOLACTONE 100 MG TAB PO SCH (08:09)
[2017-11-24] MEDS: URSODIOL 300 MG CAP PO SCH ×2 (08:09→19:42)
[2017-11-24] MEDS: FOLIC ACID 1 MG TAB PO SCH (08:09)
[2017-11-24] MEDS: FUROSEMIDE 20 MG TAB PO SCH (08:10)
[2017-11-24] MEDS: MULTIVITAMINS/MINERALS THERAPEUTIC TAB PO SCH (08:10)
[2017-11-24] MEDS: RIFAXIMIN 550 MG TAB PO SCH ×2 (08:10→19:42)
[2017-11-24] MEDS: PHYTONADIONE 10 MG/ML VIAL SQ SCH (08:10)
[2017-11-24] MEDS: THIAMINE HCL 100 MG TAB PO SCH (08:10)
[2017-11-24 08:15] VITALS: PULSE 105
[2017-11-24] MEDS: MORPHINE SULFATE 15 MG CONTROLLED RELEASE TAB PO SCH (08:35)
[2017-11-24] MEDS: SODIUM CHLORIDE 0.9% FLUSH 10 ML FLUSH IV FLUSH SCH ×2 (09:00→19:47)
[2017-11-24] MEDS ORDERED: cefTRIAXone INJ 2,000 MG in SODIUM CHLORIDE 0.9% INJ 100 ML IV SCH ×2 (11:00→17:00)
[2017-11-24] MEDS ORDERED: PROPOFOL 200 MG/20 ML AMP IV ONE (12:00)
[2017-11-24] MEDS ORDERED: DO NOT ADM ANY ANTICOAGULANT DRUGS PRN (12:10)
--- NOTE | 2017-11-24 12:10 | PD.PROCEDR ---
GI Procedure PROCEDURE PERFORMED Upper endoscopy with biopsy INDICATION FOR PROCEDURE History of cirrhosis, anemia PROCEDURE: The procedure, risks and benefits were discussed with Ms. Paz and informed consent was obtained. Anesthesia sedated her with Diprivan. She was placed in the left lateral decubitus position. EGD: The Pentax videoscope was introduced through the oropharynx and advanced to the second portion of the duodenum under direct visualization. Retroflexion was performed in the stomach. Biopsy from the distal esophagus for irregular Z line , biopsy from the antrum for mild gastritis ESTIMATED BLOOD LOSS: None SPECIMENS REMOVED: Distal esophagus at the GE junction Antrum COMPLICATIONS: None IMPRESSION: Irregular Z line biopsy was done Mild gastritis biopsy from the antrum Gastropathy in the stomach from portal hypertension PLAN: Nothing by mouth until after the liver biopsy if plan today Await biopsy results No alcohol Protonix 40 mg daily Elise Pina MD Nov 24, 2017 12:10
--- NOTE | 2017-11-24 12:16 | HHI.GIFU ---
Subjective Remarks Patient is laying in bed, seems to be comfortable, no significant new issue, still jaundice Objective Vitals I&O Vital Signs Date Time Temp Pulse Resp B/P (MAP) Pulse Ox O2 Delivery O2 Flow Rate FiO2 11/24/17 08:15 105 11/24/17 08:00 97.3 106 14 85/47 (60) 90 11/24/17 07:20 Room Air 11/24/17 04:00 98.2 105 16 89/51 (64) 93 11/24/17 02:27 103 11/23/17 23:46 98.1 109 16 86/48 (61) 93 11/23/17 19:10 98.0 110 16 92/51 (65) 94 11/23/17 17:37 18 11/23/17 16:00 97.9 112 18 108/55 (72) 98 I/O 11/23/17 11/23/17 11/23/17 11/24/17 11/24/17 11/24/17 07:00 15:00 23:00 07:00 15:00 23:00 Intake Total 240 ml 480 ml 720 ml 100 ml Balance 240 ml 480 ml 720 ml 100 ml Intake Oral 240 ml 480 ml 720 ml Other 100 ml # Voids 2 4 3 # Bowel Movements 1 1 0 Laboratory Laboratory Tests Test 11/24/17 05:12 White Blood Count 16.2 Red Blood Count 2.43 Hemoglobin 9.0 Hematocrit 26.7 Mean Corpuscular Volume 109.9 Mean Corpuscular Hemoglobin 37.0 Mean Corpuscular Hemoglobin Concent 33.6 Red Cell Distribution Width 15.6 Platelet Count 391 Mean Platelet Volume 7.7 Neutrophils (%) (Auto) 76.6 Lymphocytes (%) (Auto) 14.5 Monocytes (%) (Auto) 6.4 Eosinophils (%) (Auto) 0.9 Basophils (%) (Auto) 1.6 Neutrophils # (Auto) 12.4 Lymphocytes # (Auto) 2.4 Monocytes # (Auto) 1.0 Eosinophils # (Auto) 0.1 Basophils # (Auto) 0.3 CBC Comment DIFF FINAL Differential Comment Prothrombin Time 13.3 Prothromb Time International Ratio 1.3 Blood Urea Nitrogen 8 Creatinine 0.75 Random Glucose 68 Total Protein 5.3 Albumin 1.6 Calcium Level 8.1 Phosphorus Level 2.5 Magnesium Level 2.1 Alkaline Phosphatase 119 Aspartate Amino Transf (AST/SGOT) 141 Alanine Aminotransferase (ALT/SGPT) 39 Total Bilirubin 9.9 Sodium Level 133 Potassium Level 4.1 Chloride Level 97 Carbon Dioxide Level 30.3 Anion Gap 6 Estimat Glomerular Filtration Rate 86 Physical Exam HEENT: Pupils round and reactive to light; normocephalic; atraumatic; + jaundice. NECK: Neck is supple, no JVD CHEST: Chest is clear , but low volumes CARDIAC: Controlled heart rate ABDOMEN: taut, distended, realized light tenderness especially in right upper quadrant, bowel sounds are present in all four quadrants. EXTREMITIES: No clubbing, cyanosis, or edema. 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 Mild anxiety Assessment and Plan Plan Patient was seen and examined, elevated liver function test, most likely related to alcohol, upper endoscopy was done, also further workup for other etiologies of liver disease was ordered, possible liver biopsy today IMPRESSION: Irregular Z line biopsy was done Mild gastritis biopsy from the antrum Gastropathy in the stomach from portal hypertension PLAN: Nothing by mouth until after the liver biopsy if plan today Await biopsy results No alcohol Protonix 40 mg daily AMA-ASMA- anti LKM, ceruloplasmin, iron studies, alpha-fetoprotein, alpha 1 antitrypsin Elise Pina MD Nov 24, 2017 12:16
--- NOTE | 2017-11-24 15:58 | HHI.PR ---
Subjective Remarks The first entry, the patient was seen at 1325 hrs. The patient states abdominal pain is much improved on Ultram. The patient denies nausea or vomiting, abdominal pain is improving. Denies fevers or chills. The patient is status post EGD and liver biopsy. Objective Vitals Vital Signs Date Time Temp Pulse Resp B/P (MAP) Pulse Ox O2 Delivery O2 Flow Rate FiO2 11/24/17 12:33 97.7 98 16 90/45 (60) 94 Nasal Cannula 2 11/24/17 12:15 97.7 95 16 86/43 (57) 95 Nasal Cannula 2 11/24/17 08:15 105 11/24/17 08:00 97.3 106 14 85/47 (60) 90 11/24/17 07:20 Room Air 11/24/17 04:00 98.2 105 16 89/51 (64) 93 11/24/17 02:27 103 11/23/17 23:46 98.1 109 16 86/48 (61) 93 11/23/17 19:10 98.0 110 16 92/51 (65) 94 11/23/17 17:37 18 11/23/17 16:00 97.9 112 18 108/55 (72) 98 I/O 11/23/17 11/23/17 11/23/17 11/24/17 11/24/17 11/24/17 07:00 15:00 23:00 07:00 15:00 23:00 Intake Total 240 ml 480 ml 720 ml 100 ml Balance 240 ml 480 ml 720 ml 100 ml Intake Oral 240 ml 480 ml 720 ml 0 ml Other 100 ml # Voids 2 4 3 2 # Bowel Movements 1 1 0 1 Result Diagram: 11/24/17 0512 11/24/17 0512 Imaging Last Impressions Abdomen Ultrasound 11/23/17 0600 Signed Impressions: Service Date/Time: Thursday, November 23, 2017 07:57 - CONCLUSION: Mild ascites. Lei Lynn MD Chest X-Ray 11/20/171517 Signed Impressions: Service Date/Time: October 15:31 - CONCLUSION: The lungs are clear. Benito Whiteside MD Abdomen/Pelvis CT 11/20/175 Signed Impressions: Service Date/Time: October 19:00 - CONCLUSION: 1. Prominent hepatomegaly with diffusely abnormal heterogeneous enhancement of the liver parenchyma and pruning of the distal portal vein branches. There is also subtle nodularity of hepatic contour. Overall, findings are most consistent with hepatitis. Differential considerations include diffuse infiltrative hepatocellular carcinoma. Correlation with clinical presentation and alpha-fetoprotein levels is recommended. 2. Mild splenomegaly and trace amount of ascites consistent with some degree of portal hypertension. 1. Fer Good MD Objective Remarks GENERAL: Mild distress due to pain. No respiratory distress. SKIN: (+) Jaundice. HEAD: Normocephalic. EYES: (+) scleral icterus. NECK: Supple, trachea midline. No JVD or lymphadenopathy. CARDIOVASCULAR: Regular rate and rhythm without murmurs, gallops, or rubs. RESPIRATORY: Breath sounds equal bilaterally. No accessory muscle use. GASTROINTESTINAL: Abdomen soft, diffusely tender to palpation, distended with positive ascitic fluid wave on abdominal exam. MUSCULOSKELETAL: No cyanosis, or edema. BACK:tender without obvious deformity. No CVA tenderness. Procedures None Medications and IVs Current Medications Medications (Trade) Dose Ordered Sig/Rebecca Route Start Time Stop Time Status Last Admin (NS Flush) 2 ml UNSCH PRN IV FLUSH 11/20/17 20:45 (NS Flush) 2 ml BID IV FLUSH 11/20/17 21:00 11/23/17 08:36 (Zofran Inj) 4 mg Q6H PRN IVP 11/20/17 20:45 (Narcan Inj) 0.4 mg UNSCH PRN IV PUSH 11/20/17 20:45 (Lactulose Liq) 30 ml DAILY PRN PO 11/20/17 20:45 (Folate) 1 mg DAILY PO 11/21/17 09:00 11/26/17 08:59 11/23/17 08:35 (Vitamin B1) 100 mg DAILY PO 11/21/17 09:00 11/23/17 08:35 (Theragran M Tab) 1 tab DAILY PO 11/21/17 09:00 11/26/17 08:59 11/23/17 08:35 (Romazicon Inj) 0.2 mg Q1M PRN IV PUSH 11/20/17 20:45 (Ativan) 1 mg Q4H PRN PO 2/22/18 20:45 (Ativan Inj) 1 mg Q4H PRN IV PUSH 11/20/17 20:45 (Ativan) 2 mg Q2H PRN PO 11/20/17 20:45 (Ativan Inj) 2 mg Q2H PRN IV PUSH 11/20/17 20:45 (Ativan Inj) 2 mg Q1H PRN IV PUSH 11/20/17 20:45 (Ativan Inj) 2 mg Q15M PRN IV PUSH 11/20/17 20:45 (Actigall) 300 mg Q12HR PO 11/21/17 10:00 11/23/17 19:31 (Xifaxan) 550 mg BID PO 11/21/17 21:00 11/23/17 19:31 (Aldactone) 100 mg DAILY PO 11/23/17 09:00 (Lasix) 20 mg DAILY PO 11/22/17 19:15 11/22/17 21:09 (Vitamin K Inj) 10 mg DAILY SQ 11/23/17 15:30 11/23/17 16:31 (Oramorph Sr) 15 mg Q12HR PO 11/23/17 21:00 11/23/17 19:31 (Ultram) 50 mg Q6H PRN PO 11/23/17 16:15 11/24/17 05:22 (Toradol Inj) 30 mg Q6H PRN IV PUSH 11/23/17 16:15 11/28/17 16:14 11/23/17 21:32 Ceftriaxone Sodium 2000 mg/ Sodium Chloride 100 ml @ 200 mls/hr Q24H IV 11/24/17 11:00 (Protonix) 40 mg DAILY PO 11/25/17 09:00 Miscellaneous Information ALL NURSING DEPARTME... UNSCH PRN .XX 11/24/17 12:10 11/25/17 12:09 A/P Problem List: (1) Hepatitis ICD Code: K75.9 - Inflammatory liver disease, unspecified Plan: Likely secondary to alcohol use. GI consulted. CT abdomen and pelvis W IV contrast (11/20) --> Prominent hepatomegaly with diffusely abnormal heterogeneous enhancement of the liver parenchyma and pruning of the distal portal vein branches. There is also subtle nodularity of hepatic contour. Overall findings most consistent with hepatitis. Differential consideration include diffuse infiltrative HCC. Mild splenomegaly and trace amount of ascites consistent with some degree of portal HTN. Gastroenterology input appreciated pending EGD next Friday11/24/17 Continue with Ursodiol and add Rifaximin 11/24 status post EGD and biopsy of the liver. EGD describes irregular Z line, mild gastritis gastropathy in the stomach from portal hypertension. Continue IV Protonix and place on oral Protonix. (2) Transaminitis ICD Code: R74.0 - Nonspecific elevation of levels of transaminase and lactic acid dehydrogenase [LDH] Plan: AST elevated at 145. ALT within normal range. As above. Monitor liver function tests. 11/24 LFTs are slowly trending down. Went down from 145-141 alkaline phosphatase is also slightly lower from 126-119. Bilirubin remains stable and slightly elevated at 9.9. (3) Jaundice ICD Code: R17 - Unspecified jaundice Plan: Jaundice secondary to liver cirrhosis with an elevated bilirubin of 10.3 which is remaining stable. 11/23 bilirubin is trending down to 9.5. Continue to monitor bilirrubin. 11/24 bilirubin remains stable and slightly elevated at 9.9. Continue to monitor bilirubin. (4) Hypokalemia ICD Code: E87.6 - Hypokalemia Status: Resolved Plan: Resolved after oral repletion. Continue to monitor BMP. (5) Coagulopathy ICD Code: D68.9 - Coagulation defect, unspecified Plan: sp IV vitamin K Continue to monitor PT and INR. 11/24 INR continues to down trend. 1.3 today. Continue to monitor PT/INR daily. Continue subcutaneous vitamin K. (6) Macrocytic anemia ICD Code: D53.9 - Nutritional anemia, unspecified Plan: Acute on chronic anemia. Hemoglobin trended down from 2.5-8.6. Continue to monitor CBC. Monitor INR daily (7) Ascites ICD Code: R18.8 - Other ascites Plan: 11/23 status post low-grade temperature of 100.0 on 11/22. Will hold off on starting empiric IV antibiotics given that the patient did not have much ascites and abdomen is very distended with diarrhea. Will check C. difficile toxin PCR. Abdominal paracentesis was not done since patient did not have enough fluid on ultrasound. Continue Lasix and spironolactone. 11/24 no further fevers. Continue to monitor off antibiotics. Continue to monitor vital signs. (8) SIRS (systemic inflammatory response syndrome) ICD Code: R65.10 - Systemic inflammatory response syndrome (SIRS) of non- infectious origin without acute organ dysfunction Plan: SIRS present on admission, patient with tachycardia and leukocytosis. UA negative. 11/23 check C. difficile toxin PCR since patient has a very distended abdomen and diarrhea. If C. difficile is negative then will start the patient on empiric IV Rocephin if the fever continues. 11/24 patient states diarrhea has resolved and has not had a bowel movement yet since yesterday. (9) Abdominal pain ICD Code: R10.9 - Unspecified abdominal pain Plan: Abdominal pain likely secondary to hepatitis and abdominal distention. Check c diff toxin PCR Patint currently on IV Toradol however still with pain. Will start patient on Oramorph 15 mg p.o. twice daily, tramadol as needed for pain and IV Toradol as needed for breakthrough pain. 11/24 Oramorph started secondary to low blood pressure. Patient states pain in the abdomen is much improved with tramadol. Continue IV Toradol for breakthrough pain. (10) Severe protein-calorie malnutrition ICD Code: E43 - Unspecified severe protein-calorie malnutrition Status: Acute Plan: Albumin 1.6. Consult dietitian. (11) Leukocytosis ICD Code: D72.829 - Elevated white blood cell count, unspecified Plan: WBC count is trending up. I will start the patient IV Rocephin empirically. Check urinalysis. Chest x-ray reviewed by me on admission showed clear lungs. Depending on results I will consider an infectious disease consult. Assessment and Plan DVT prophylaxis: SCDs, Problem Qualifiers (1) Ascites: Qualified Codes: K70.31 - Alcoholic cirrhosis of liver with ascites (2) Abdominal pain: Qualified Codes: R10.84 - Generalized abdominal pain (3) Leukocytosis: Qualified Codes: D72.829 - Elevated white blood cell count, unspecified Amado Graham MD Nov 24, 2017 15:58
[2017-11-24 16:26] VITALS: O2SAT 94
[2017-11-24 19:40] VITALS: BP 82/48; PULSE 111; RESP 17; TEMP 97.1; O2SAT 96
[2017-11-24 21:16] LABS: IRON (FE) 90 MCG/DL (50-170); TOTAL IRON BINDING CAPACITY 134 MCG/DL (250-450)
[2017-11-25] VITALS (7 sets, daily range): BP systolic 85–97; BP diastolic 44–54; PULSE 102–113; RESP 17–18; TEMP 97.8–98.8; O2SAT 92–96
[2017-11-25 08:13] LABS: AUTOMATED NEUTROPHIL # 13.8 TH/MM3 (1.8-7.7); BASOPHIL # 0.1 TH/MM3 (0-0.2); BASOPHIL % 0.7 % (0.0-2.0); EOSINOPHIL # 0.1 TH/MM3 (0-0.4); EOSINOPHIL % 0.6 % (0.0-4.0); HEMATOCRIT 27.1 % (35.0-46.0); HEMOGLOBIN 9.4 GM/DL (11.6-15.3); LYMPH % 8.5 % (9.0-44.0); LYMPHOCYTE # 1.4 TH/MM3 (1.0-4.8); MEAN CELL VOLUME 109.7 FL (80.0-100.0); MEAN CORPUSCULAR HGB CONC 34.6 % (32.0-36.0); MEAN PLATELET VOLUME 7.8 FL (7.0-11.0); MONO % 6.5 % (0.0-8.0); MONOCYTE # 1.1 TH/MM3 (0-0.9); NEUT % 83.7 % (16.0-70.0); PLATELET COUNT 369 TH/MM3 (150-450); RED BLOOD COUNT 2.47 MIL/MM3 (4.00-5.30); RED CELL DISTRIBUTION WIDTH 15.7 % (11.6-17.2); WHITE BLOOD COUNT 16.5 TH/MM3 (4.0-11.0)
[2017-11-25] MEDS: URSODIOL 300 MG CAP PO SCH (08:14)
[2017-11-25] MEDS: SPIRONOLACTONE 100 MG TAB PO SCH (08:14)
[2017-11-25] MEDS: RIFAXIMIN 550 MG TAB PO SCH (08:14)
[2017-11-25] MEDS: FOLIC ACID 1 MG TAB PO SCH (08:14)
[2017-11-25] MEDS: MULTIVITAMINS/MINERALS THERAPEUTIC TAB PO SCH (08:14)
[2017-11-25] MEDS: FUROSEMIDE 20 MG TAB PO SCH (08:15)
[2017-11-25] MEDS: PHYTONADIONE 10 MG/ML VIAL SQ SCH (08:15)
[2017-11-25] MEDS: SODIUM CHLORIDE 0.9% FLUSH 10 ML FLUSH IV FLUSH SCH (08:15)
[2017-11-25] MEDS: THIAMINE HCL 100 MG TAB PO SCH (08:15)
[2017-11-25 08:55] LABS: ALBUMIN 1.6 GM/DL (3.4-5.0); AST (GOT) 146 U/L (15-37); BICARBONATE 29.1 MEQ/L (21.0-32.0); BLOOD UREA NITROGEN 8 MG/DL (7-18); CALCIUM 8.3 MG/DL (8.5-10.1); CHLORIDE 97 MEQ/L (98-107); CREATININE 0.56 MG/DL (0.50-1.00); GLOMERULAR FILTRATION RATE 120 ML/MIN (>89); GLUCOSE,RANDOM 76 MG/DL (74-106); SODIUM (NA) 132 MEQ/L (136-145)
[2017-11-25 08:59] LABS: ALKALINE PHOSPHATASE 137 U/L (45-117); ALT (GPT) 35 U/L (10-53); PHOSPHORUS 3.5 MG/DL (2.5-4.9); TOTAL BILIRUBIN ADULT 9.8 MG/DL (0.2-1.0); TOTAL PROTEIN 5.2 GM/DL (6.4-8.2)
[2017-11-25] MEDS ORDERED: PANTOPRAZOLE SOD 40 MG DELAYED RELEASE TAB PO SCH (09:00)
[2017-11-25] MEDS: traMADol HCL 50 MG TAB PO PRN (10:14)
[2017-11-25 12:04] LABS: INTERNATIONAL NORMALIZED RATIO 1.3 RATIO; PROTHROMBIN TIME - PATIENT 13.4 SEC (9.8-11.6)
--- NOTE | 2017-11-25 12:26 | HHI.GIFU ---
Subjective Remarks Pt in bed, getting blood drawn. She is eager to be d/c. Feels bloated but denies bleeding, abd pain. (Jaqui Kumar) Objective Vitals I&O Vital Signs Date Time Temp Pulse Resp B/P (MAP) Pulse Ox O2 Delivery O2 Flow Rate FiO2 11/25/17 11:42 98.2 106 18 94/45 (61) 96 11/25/17 08:41 92 21 11/25/17 07:53 98.1 105 18 90/53 (65) 92 11/25/17 07:28 102 11/25/17 07:25 Room Air 11/25/17 04:50 98.1 105 17 88/44 (59) 93 11/25/17 00:57 98.8 109 17 85/45 (58) 95 11/24/17 19:40 97.1 111 17 82/48 (59) 96 11/24/17 16:26 94 21 11/24/17 12:33 97.7 98 16 90/45 (60) 94 Nasal Cannula 2 I/O 11/24/17 11/24/17 11/24/17 11/25/17 11/25/17 11/25/17 07:00 15:00 23:00 07:00 15:00 23:00 Intake Total 720 ml 100 ml 480 ml 360 ml Balance 720 ml 100 ml 480 ml 360 ml Intake Oral 720 ml 0 ml 480 ml 360 ml Other 100 ml # Voids 3 2 2 2 # Bowel Movements 0 1 0 0 Laboratory Laboratory Tests Test 11/25/17 08:01 11/25/17 11:38 White Blood Count 16.5 Red Blood Count 2.47 Hemoglobin 9.4 Hematocrit 27.1 Mean Corpuscular Volume 109.7 Mean Corpuscular Hemoglobin 38.0 Mean Corpuscular Hemoglobin Concent 34.6 Red Cell Distribution Width 15.7 Platelet Count 369 Mean Platelet Volume 7.8 Neutrophils (%) (Auto) 83.7 Lymphocytes (%) (Auto) 8.5 Monocytes (%) (Auto) 6.5 Eosinophils (%) (Auto) 0.6 Basophils (%) (Auto) 0.7 Neutrophils # (Auto) 13.8 Lymphocytes # (Auto) 1.4 Monocytes # (Auto) 1.1 Eosinophils # (Auto) 0.1 Basophils # (Auto) 0.1 CBC Comment DIFF FINAL Differential Comment Blood Urea Nitrogen 8 Creatinine 0.56 Random Glucose 76 Total Protein 5.2 Albumin 1.6 Calcium Level 8.3 Phosphorus Level 3.5 Magnesium Level 2.0 Alkaline Phosphatase 137 Aspartate Amino Transf (AST/SGOT) 146 Alanine Aminotransferase (ALT/SGPT) 35 Total Bilirubin 9.8 Sodium Level 132 Potassium Level 4.0 Chloride Level 97 Carbon Dioxide Level 29.1 Anion Gap 6 Estimat Glomerular Filtration Rate 120 Prothrombin Time 13.4 Prothromb Time International Ratio 1.3 Imaging Last Impressions Abdomen Ultrasound 11/23/17 0600 Signed Impressions: Service Date/Time: Thursday, November 23, 2017 07:57 - CONCLUSION: Mild ascites. Lei Lynn MD Chest X-Ray 11/20/171517 Signed Impressions: Service Date/Time: October 15:31 - CONCLUSION: The lungs are clear. Benito Whiteside MD Abdomen/Pelvis CT 11/20/171517 Signed Impressions: Service Date/Time: October 19:00 - CONCLUSION: 1. Prominent hepatomegaly with diffusely abnormal heterogeneous enhancement of the liver parenchyma and pruning of the distal portal vein branches. There is also subtle nodularity of hepatic contour. Overall, findings are most consistent with hepatitis. Differential considerations include diffuse infiltrative hepatocellular carcinoma. Correlation with clinical presentation and alpha-fetoprotein levels is recommended. 2. Mild splenomegaly and trace amount of ascites consistent with some degree of portal hypertension. 1. Fer Good MD Physical Exam HEENT: PERRL; normocephalic; atraumatic; + icterus CHEST: CTA CARDIAC: RRR ABDOMEN: semifirm, distended, dull, nontender EXTREMITIES: No clubbing, cyanosis, or edema. 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 Recently evaluated by our service for similar symptoms. Work up as follows: ASMA (+), low titer, YEHUDA, Hepatitis panel, AMA, and celiac panel negative. Ceruloplasmin-28 Alpha-1 antitrypsin-201. Due to an elevated ferritin level pt was also tested for hemochromatosis which came back negative. CT abdomen revealed --> Marked hepatomegaly with hepatic steatosis. No normal enhancement of the pancreas with minimal peripancreatic fluid suggesting acute interstitial edematous pancreatitis, pt also had an elevated lipase and hypocalcemia. Labs at time of discharge were more elevated then at present, previously Alk phos-182 AST-186 ALT-37 T bili- 9.7. CT abdomen and pelvis W IV contrast (11/20) --> Prominent hepatomegaly with diffusely abnormal heterogeneous enhancement of the liver parenchyma and pruning of the distal portal vein branches. There is also subtle nodularity of hepatic contour. Overall findings most consistent with hepatitis. Differential consideration include diffuse infiltrative HCC. Mild splenomegaly and trace amount of ascites consistent with some degree of portal HTN. Labs currently: AST-142 ALT-41 Alk phos-118 T bili-10.5 DF-29 - Coagulopathy- INR 1.6 - ETOH abuse- reports no ETOH since being DCd from last week, previously drinking a pint of vodka daily for the past six months - given previous negative liver HEIN this is likely the cause of symptoms. - Mid back pain, between shoulder blades, states chronic since first being diagnosed with pancreatitis in July. Denies acid reflux, heartburn, epigastric pain. 11/24/17Patient was seen and examined, elevated liver function test, most likely related to alcohol, upper endoscopy was done, also further workup for other etiologies of liver disease was ordered, possible liver biopsy today IMPRESSION: Irregular Z line biopsy was done Mild gastritis biopsy from the antrum Gastropathy in the stomach from portal hypertension 11/25/17 WBC trending up, afebrile. LFTs remain elevated. she is on rocephin. liver w/u is pending, labs being drawn currently. hep panel negative. pt does not want to proceed with liver bx. EGD path pending ID has been consulted. d/w primary PLAN: - await liver w/u - continue rocephin - await ID consult - low sodium diet -Await biopsy results - ETOH cessation - Protonix 40 mg daily (Jaqui Kumar) Plan Patient was seen and examined, agree with above note, patient was to go home, we are going to follow up on her as an outpatient if she gets discharged for the liver workup, she was advised to be off alcohol completely (Elise Pina MD) Jaqui Kumar Nov 25, 2017 12:26 Elise Pina MD Nov 26, 2017 09:46
--- NOTE | 2017-11-25 14:14 | PD.CONS ---
History of Present Illness Service infectious disease Consult Requested By Dr. Brennan Reason for Consult Evaluate patient with leukocytosis Primary Care Physician No Primary Care Physician Diagnoses: History of Present Illness Patient seen and examined. Records reviewed. This is a 42-year-old female, with known history of alcohol abuse, patient to the hospital for abdominal distention and abdominal pain. She apparently has had prior history of pancreatitis the first one being in July which was related to her significant alcohol intake. She was evaluated, and GI also saw the patient. CT of the abdomen and pelvis did not show any significant ascites but it had findings suggestive of hepatitis. She had undergone upper and lower endoscopy. White count was 12,000. It had gone up to come 15,000. She's been afebrile. She continues to have abdominal pain which is under control. Denies any respiratory complaint. She has not had any urinary or any nausea vomiting or diarrhea. Patient has been ambulating in her room and in the hallways. Her chest x-ray on admission is normal. Her urinalysis is unremarkable. Her LFTs are remaining stable. Infectious disease consultation has been requested to evaluate the patient with leukocytosis. Review of Systems Constitutional: COMPLAINS OF: Weight gain, DENIES: Fever, Chills Eyes: DENIES: Eye pain Ears, nose, mouth, throat: DENIES: Nasal discharge, Oral lesions, Throat pain, Ear Pain, Sinus Pain Respiratory: DENIES: Cough, Shortness of breath Cardiovascular: COMPLAINS OF: Lower Extremity Edema, DENIES: Chest pain, Palpitations Gastrointestinal: COMPLAINS OF: Abdominal pain, DENIES: Diarrhea, Nausea, Vomiting, Difficulty Swallowing Genitourinary: DENIES: Urinary frequency, Urinary incontinence, Dysuria Musculoskeletal: COMPLAINS OF: Joint Swelling, DENIES: Joint pain, Muscle aches Integumentary: COMPLAINS OF: Pruritus, Rash Immunologic/allergic: DENIES: Urticaria Neurologic: DENIES: Localized weakness Psychiatric: DENIES: Hallucinations Past Family Social History Allergies: Coded Allergies: No Known Allergies (Unverified , 11/20/17) Past Medical History Alcohol abuse Recent diagnosis of alcoholic hepatitis and cirrhosis Past Surgical History Active Ordered Medications Current Medications Medications (Trade) Dose Ordered Sig/Rebecca Route Start Time Stop Time Status Last Admin (NS Flush) 2 ml UNSCH PRN IV FLUSH 11/20/17 20:45 (NS Flush) 2 ml BID IV FLUSH 2/22/18 21:00 11/25/17 08:15 (Zofran Inj) 4 mg Q6H PRN IVP 11/20/17 20:45 (Narcan Inj) 0.4 mg UNSCH PRN IV PUSH 11/20/17 20:45 (Lactulose Liq) 30 ml DAILY PRN PO 11/20/17 20:45 (Folate) 1 mg DAILY PO 11/21/17 09:00 11/26/17 08:59 11/25/17 08:14 (Vitamin B1) 100 mg DAILY PO 11/21/17 09:00 11/25/17 08:15 (Theragran M Tab) 1 tab DAILY PO 11/21/17 09:00 11/26/17 08:59 11/25/17 08:14 (Romazicon Inj) 0.2 mg Q1M PRN IV PUSH 11/20/17 20:45 (Ativan) 1 mg Q4H PRN PO 11/20/17 20:45 (Ativan Inj) 1 mg Q4H PRN IV PUSH 11/20/17 20:45 (Ativan) 2 mg Q2H PRN PO 11/20/17 20:45 (Ativan Inj) 2 mg Q2H PRN IV PUSH 11/20/17 20:45 (Ativan Inj) 2 mg Q1H PRN IV PUSH 11/20/17 20:45 (Ativan Inj) 2 mg Q15M PRN IV PUSH 11/20/17 20:45 (Actigall) 300 mg Q12HR PO 11/21/17 10:00 11/25/17 08:14 (Xifaxan) 550 mg BID PO 11/21/17 21:00 11/25/17 08:14 (Aldactone) 100 mg DAILY PO 11/23/17 09:00 (Lasix) 20 mg DAILY PO 11/22/17 19:15 11/22/17 21:09 (Vitamin K Inj) 10 mg DAILY SQ 11/23/17 15:30 11/23/17 16:31 (Ultram) 50 mg Q6H PRN PO 11/23/17 16:15 11/25/17 10:14 (Toradol Inj) 30 mg Q6H PRN IV PUSH 11/23/17 16:15 11/28/17 16:14 11/23/17 21:32 (Protonix) 40 mg DAILY PO 11/25/17 09:00 11/25/17 08:14 Ceftriaxone Sodium 2000 mg/ Sodium Chloride 100 ml @ 200 mls/hr Q24H IV 11/24/17 17:00 11/24/17 16:50 Family History Unremarkable Social History Smokes approximately a half a pack per day. Was drinking 8-10 airplane bottles of liquor with 1-2 glasses of wine daily until 2 weeks ago. Remote history of marijuana. Denies any other illicit drug use Physical Exam Vital Signs Vital Signs Date Time Temp Pulse Resp B/P (MAP) Pulse Ox O2 Delivery O2 Flow Rate FiO2 11/25/17 11:42 98.2 106 18 94/45 (61) 96 11/25/17 08:41 92 21 11/25/17 07:53 98.1 105 18 90/53 (65) 92 11/25/17 07:28 102 11/25/17 07:25 Room Air 11/25/17 04:50 98.1 105 17 88/44 (59) 93 11/25/17 00:57 98.8 109 17 85/45 (58) 95 11/24/17 19:40 97.1 111 17 82/48 (59) 96 11/24/17 16:26 94 21 Physical Exam GENERAL: Patient is a well-nourished, well-developed female, awake and alert , not in respiratory distress. SKIN: Warm and dry. Has spider angiomatas in her upper trunk. Has jaundice HEAD: Atraumatic. Normocephalic. No temporal wasting, or tenderness. EYES: [place] conjunctiva. No petechia or hemorrhage. Pupils equal, round and reactive to light. Extraocular movements full and intact. Has scleral icterus EARS, NOSE AND THROAT: Nose without bleeding or purulent nasal discharge. No sinus tenderness. Mucous membranes pink and moist. No oral lesions noted. No exudate. No oral thrush. NECK: Trachea midline. Supple and not tender, no meningeal signs CARDIOVASCULAR: Regular rate and rhythm. No murmurs, rubs or gallops heard RESPIRATORY: Clear to auscultation. Breath sounds equal bilaterally. No rales , wheezing or rhonchi ABDOMEN: Soft, distended, mild tenderness, no guarding or rebound. Bowel sounds present and normoactive. Liver is enlarged. EXTREMITIES: No clubbing, cyanosis. Has pitting edema at feet and ankle, worse on L than on R. NO calf tenderness. Negative Emperatriz's sign. NEUROLOGICAL: Awake and alert. Cranial nerves grossly intact. Motor grossly within normal limits. PSYCHIATRIC: Normal affect, calm and cooperative. LINE: No evidence of infection Laboratory Laboratory Tests Test 11/25/17 08:01 11/25/17 11:38 White Blood Count 16.5 Red Blood Count 2.47 Hemoglobin 9.4 Hematocrit 27.1 Mean Corpuscular Volume 109.7 Mean Corpuscular Hemoglobin 38.0 Mean Corpuscular Hemoglobin Concent 34.6 Red Cell Distribution Width 15.7 Platelet Count 369 Mean Platelet Volume 7.8 Neutrophils (%) (Auto) 83.7 Lymphocytes (%) (Auto) 8.5 Monocytes (%) (Auto) 6.5 Eosinophils (%) (Auto) 0.6 Basophils (%) (Auto) 0.7 Neutrophils # (Auto) 13.8 Lymphocytes # (Auto) 1.4 Monocytes # (Auto) 1.1 Eosinophils # (Auto) 0.1 Basophils # (Auto) 0.1 CBC Comment DIFF FINAL Differential Comment Blood Urea Nitrogen 8 Creatinine 0.56 Random Glucose 76 Total Protein 5.2 Albumin 1.6 Calcium Level 8.3 Phosphorus Level 3.5 Magnesium Level 2.0 Alkaline Phosphatase 137 Aspartate Amino Transf (AST/SGOT) 146 Alanine Aminotransferase (ALT/SGPT) 35 Total Bilirubin 9.8 Sodium Level 132 Potassium Level 4.0 Chloride Level 97 Carbon Dioxide Level 29.1 Anion Gap 6 Estimat Glomerular Filtration Rate 120 Prothrombin Time 13.4 Prothromb Time International Ratio 1.3 Result Diagram: 11/25/17 0801 11/25/17 0801 Imaging RADIOLOGY STUDIES/FILMS REVIEWED Abdomen Ultrasound 11/23/17 0600 Signed Impressions: Service Date/Time: Thursday, November 23, 2017 07:57 - CONCLUSION: Mild ascites. Lei Lynn MD Chest X-Ray 11/20/171517 Signed Impressions: Service Date/Time: October 15:31 - CONCLUSION: The lungs are clear. Benito Whiteside MD Abdomen/Pelvis CT 11/20/17 1588 Signed Impressions: Service Date/Time: Thursday, November 20, 2017 19:00 - CONCLUSION: 1. Prominent hepatomegaly with diffusely abnormal heterogeneous enhancement of the liver parenchyma and pruning of the distal portal vein branches. There is also subtle nodularity of hepatic contour. Overall, findings are most consistent with hepatitis. Differential considerations include diffuse infiltrative hepatocellular carcinoma. Correlation with clinical presentation and alpha-fetoprotein levels is recommended. 2. Mild splenomegaly and trace amount of ascites consistent with some degree of portal hypertension. 1. Fer Good MD Assessment and Plan Assessment and Plan IMPRESSION Leukocytosis, no obvious source of infection, likely due to underlying ETOH hepatitis Known ETOH abuse RECOMMENDATION Stop ABx Follow CBC as outpatient If stable should be able to D/C on no ABx Thank you for this consultation Ashley Vaughn MD Nov 25, 2017 14:14
[2017-11-25] MEDS ORDERED: PANT40TA3 PO (15:34)
[2017-11-25] MEDS ORDERED: TRAM50 PO (15:34)
[2017-11-25] MEDS ORDERED: XIFA550T4 PO (15:34)
[2017-11-25] MEDS ORDERED: FOLI1TAB6 PO (15:34)
[2017-11-25] MEDS ORDERED: THIA100 PO (15:34)
[2017-11-25] MEDS ORDERED: ALDA100T PO (15:34)
--- NOTE | 2017-11-25 15:41 | HHI.DCPOC ---
Discharge Care Plan Diagnosis: (1) Transaminitis (2) Hepatitis (3) Jaundice (4) Coagulopathy (5) Macrocytic anemia (6) Ascites (7) Abdominal pain (8) Leukocytosis (9) Severe protein-calorie malnutrition Goals to Promote Your Health * To prevent worsening of your condition and complications * To maintain your health at the optimal level Directions to Meet Your Goals Take your medications as prescribed Follow your dietary instruction Follow activity as directed Keep your appointments as scheduled Take your immunizations and boosters as scheduled If your symptoms worsen call your PCP, if no PCP go to Urgent Care Center or Emergency Room Smoking is Dangerous to Your Health. Avoid second hand smoke Call the 24-hour hour crisis hotline for domestic abuse at Amado Graham MD Nov 25, 2017 15:41
--- NOTE | 2017-11-25 15:46 | HHI.DS ---
Discharge Summary Admission Date Nov 20, 2017 at 20:00 Discharge Date: Nov 25, 2017 Admitting Diagnosis hypokalemia, cirrhosis (1) Hepatitis ICD Code: K75.9 - Inflammatory liver disease, unspecified (2) Transaminitis ICD Code: R74.0 - Nonspecific elevation of levels of transaminase and lactic acid dehydrogenase [LDH] (3) Jaundice ICD Code: R17 - Unspecified jaundice (4) Hypokalemia ICD Code: E87.6 - Hypokalemia Status: Resolved (5) Coagulopathy ICD Code: D68.9 - Coagulation defect, unspecified (6) Macrocytic anemia ICD Code: D53.9 - Nutritional anemia, unspecified (7) Ascites ICD Code: R18.8 - Other ascites (8) SIRS (systemic inflammatory response syndrome) ICD Code: R65.10 - Systemic inflammatory response syndrome (SIRS) of non- infectious origin without acute organ dysfunction (9) Abdominal pain ICD Code: R10.9 - Unspecified abdominal pain (10) Severe protein-calorie malnutrition ICD Code: E43 - Unspecified severe protein-calorie malnutrition Status: Acute (11) Leukocytosis ICD Code: D72.829 - Elevated white blood cell count, unspecified Procedures None Brief History - From Admission 42-year-old female with a past medical history significant for alcohol abuse presents to the emergency department for the evaluation of abdominal distention and pain. The patient has a history of pancreatitis with her first episode occurring in July. She was seen in [facility] last week with similar complaints. She believes at the time that she was having a repeat episode of pancreatitis. At [facility] she was diagnosed with alcoholic hepatitis and cirrhosis. Since her discharge, the patient's abdominal distention and jaundice have worsened. She endorses associated anorexia. She complains of foot and ankle edema. She was started on Lasix at [facility] and her potassium today is 2.4. She has not had any alcohol intake since moving in with her mother 2 weeks ago. She was taking scheduled Librium which was prescribed to her at [facility]. Patient denies chest pain or shortness of breath. Denies vomiting or diarrhea. No fever/chills. CBC/BMP: 11/25/17 0801 11/25/17 0801 Significant Findings Laboratory Tests Test 11/23/17 07:53 11/24/17 05:12 11/25/17 08:01 11/25/17 11:38 White Blood Count 15.0 TH/MM3 (4.0-11.0) 16.2 TH/MM3 (4.0-11.0) 16.5 TH/MM3 (4.0-11.0) Red Blood Count 2.50 MIL/MM3 (4.00-5.30) 2.43 MIL/MM3 (4.00-5.30) 2.47 MIL/MM3 (4.00-5.30) Hemoglobin 9.3 GM/DL (11.6-15.3) 9.0 GM/DL (11.6-15.3) 9.4 GM/DL (11.6-15.3) Hematocrit 27.7 % (35.0-46.0) 26.7 % (35.0-46.0) 27.1 % (35.0-46.0) Mean Corpuscular Volume 110.8 FL (80.0-100.0) 109.9 FL (80.0-100.0) 109.7 FL (80.0-100.0) Mean Corpuscular Hemoglobin 37.3 PG (27.0-34.0) 37.0 PG (27.0-34.0) 38.0 PG (27.0-34.0) Neutrophils (%) (Auto) 76.7 % (16.0-70.0) 76.6 % (16.0-70.0) 83.7 % (16.0-70.0) Neutrophils # (Auto) 11.5 TH/MM3 (1.8-7.7) 12.4 TH/MM3 (1.8-7.7) 13.8 TH/MM3 (1.8-7.7) Basophils # (Auto) 0.3 TH/MM3 (0-0.2) 0.3 TH/MM3 (0-0.2) Prothrombin Time 13.8 SEC (9.8-11.6) 13.3 SEC (9.8-11.6) 13.4 SEC (9.8-11.6) Activated Partial Thromboplast Time 32.8 SEC (24.3-30.1) Blood Urea Nitrogen 4 MG/DL (7-18) Total Protein 5.3 GM/DL (6.4-8.2) 5.3 GM/DL (6.4-8.2) 5.2 GM/DL (6.4-8.2) Albumin 1.6 GM/DL (3.4-5.0) 1.6 GM/DL (3.4-5.0) 1.6 GM/DL (3.4-5.0) Calcium Level 8.4 MG/DL (8.5-10.1) 8.1 MG/DL (8.5-10.1) 8.3 MG/DL (8.5-10.1) Phosphorus Level 2.4 MG/DL (2.5-4.9) Alkaline Phosphatase 126 U/L (45-117) 119 U/L (45-117) 137 U/L (45-117) Aspartate Amino Transf (AST/SGOT) 145 U/L (15-37) 141 U/L (15-37) 146 U/L (15-37) Total Bilirubin 9.5 MG/DL (0.2-1.0) 9.9 MG/DL (0.2-1.0) 9.8 MG/DL (0.2-1.0) Sodium Level 135 MEQ/L (136-145) 133 MEQ/L (136-145) 132 MEQ/L (136-145) Monocytes # (Auto) 1.0 TH/MM3 (0-0.9) 1.1 TH/MM3 (0-0.9) Random Glucose 68 MG/DL (74-106) Chloride Level 97 MEQ/L (98-107) 97 MEQ/L (98-107) Estimat Glomerular Filtration Rate 86 ML/MIN (>89) Total Iron Binding Capacity 134 MCG/DL (250-450) Percent Iron Saturation 67.0 % (20-50) Lymphocytes (%) (Auto) 8.5 % (9.0-44.0) Imaging Last Impressions Abdomen Ultrasound 11/23/17 0600 Signed Impressions: Service Date/Time: Thursday, November 23, 2017 07:57 - CONCLUSION: Mild ascites. Lei Lynn MD Chest X-Ray 11/20/17 1518 Signed Impressions: Service Date/Time: October 15:31 - CONCLUSION: The lungs are clear. Benito Whiteside MD Abdomen/Pelvis CT 11/20/17 1518 Signed Impressions: Service Date/Time: October 19:00 - CONCLUSION: 1. Prominent hepatomegaly with diffusely abnormal heterogeneous enhancement of the liver parenchyma and pruning of the distal portal vein branches. There is also subtle nodularity of hepatic contour. Overall, findings are most consistent with hepatitis. Differential considerations include diffuse infiltrative hepatocellular carcinoma. Correlation with clinical presentation and alpha-fetoprotein levels is recommended. 2. Mild splenomegaly and trace amount of ascites consistent with some degree of portal hypertension. 1. Fer Good MD PE at Discharge GENERAL: Mild distress due to pain. No respiratory distress. SKIN: (+) Jaundice. HEAD: Normocephalic. EYES: (+) scleral icterus. NECK: Supple, trachea midline. No JVD or lymphadenopathy. CARDIOVASCULAR: Regular rate and rhythm without murmurs, gallops, or rubs. RESPIRATORY: Breath sounds equal bilaterally. No accessory muscle use. GASTROINTESTINAL: Abdomen soft, diffusely tender to palpation, distended with positive ascitic fluid wave on abdominal exam. MUSCULOSKELETAL: No cyanosis, or edema. BACK:tender without obvious deformity. No CVA tenderness. Pt update on day of discharge Patient states that abdominal pain is much improved. Denies fevers or chills. The patient also denies dysuria, nausea, vomiting abdominal pain. Patient is tolerating diet very well. ID consulted for worsening leukocytosis, however there is no infectious source identified. The case was discussed with who cleared the patient to be discharged. Pt Condition on Discharge: Stable Discharge Disposition: Discharge Home Discharge Time: > 30 minutes Discharge Instructions DIET: Follow Instructions for: Low Fat Diet Activities you can perform: Regular-No Restrictions Follow up Referrals: Gastroenterology - 2 Weeks with Elise Pina MD PCP Follow-up - 1 Week New Medications: Folic Acid (Folic Acid) 1 Mg Tablet 1 MG PO DAILY for Alcohol Detox, #31 TAB Pantoprazole (Pantoprazole) 40 Mg Tab 40 MG PO DAILY for abdominal pain, #31 TAB Rifaximin (Xifaxan) 550 Mg Tab 550 MG PO BID for liver disease, #62 TAB Spironolactone (Aldactone) 100 Mg Tab 100 MG PO DAILY for anasarca, #31 TAB Thiamine HCl (Gnp Vitamin B-1) 100 Mg Tab 100 MG PO DAILY for Alcohol Detox, #31 TAB Tramadol (Ultram) 50 Mg Tab 50 MG PO Q6H PRN for PAIN SCALE 1 TO 10, #30 TAB Continued Medications: Furosemide (Lasix) 20 Mg Tab 20 MG PO DAILY, #30 TAB 0 Refills Ursodiol (Ursodiol) 300 Mg Cap 300 MG PO BID for Gallstones, #60 CAP 0 Refills Discontinued Medications: Chlordiazepoxide HCl (Chlordiazepoxide HCl) 10 Mg Capsule 1 CAP PO BID Oxycodone (Oxycodone) 5 Mg Cap 5 MG PO HS PRN for PAIN SCALE 5 TO 10, CAP 0 Refills Pentoxifylline ER (Pentoxifylline ER) 400 Mg Tab 400 MG PO TID for Intermittent claudication, #90 TAB 0 Refills Amado Graham MD Nov 25, 2017 15:46
[2017-11-26 13:47] LABS: SMOOTH MUSCLE TOTAL AUTOABS Negative (Negative)
[2017-11-27 15:53] LABS: MITOCHONDRIAL ABS LESS THAN 20.0 U (<=20.0)
[2017-11-27 16:54] LABS: ALPHA-1-ANTITRYPSIN 289 mg/dL (100 - 190)
[2017-11-27 19:54] LABS: CERULOPLASMIN 36 mg/dL (18-53)
[2017-11-28 03:51] LABS: LIVER-KIDNEY-MICROSOME AUTOABS LESS THAN 20.0 U (<20.0)
== END 2017-11-25 17:52 | disposition home or self-care (01) | DRG 432 ==
LOC: NEPC 14:51 → NEDA 20:00 → N06A 22:14
PROVIDERS: ADMIT Hospitalist; ATTEND Hospitalist
PROC: 0DB78ZX Excision of Stomach, Pylorus, Via Natural or Artificial Opening Endoscopic, Diagnostic (ICD-10-PCS; 2017-11-24)
PROC: 0DB38ZX Excision of Lower Esophagus, Via Natural or Artificial Opening Endoscopic, Diagnostic (ICD-10-PCS; principal; 2017-11-24 11:17)
DX: K70.11 Alcoholic hepatitis with ascites (principal); E43 Unspecified severe protein-calorie malnutrition; K70.31 Alcoholic cirrhosis of liver with ascites; D68.9 Coagulation defect, unspecified; K76.6 Portal hypertension; E87.6 Hypokalemia; R16.1 Splenomegaly, not elsewhere classified; E83.51 Hypocalcemia; R60.0 Localized edema; F10.10 Alcohol abuse, uncomplicated; F17.210 Nicotine dependence, cigarettes, uncomplicated; R74.8 Abnormal levels of other serum enzymes; K76.0 Fatty (change of) liver, not elsewhere classified; M54.6 Pain in thoracic spine; K29.70 Gastritis, unspecified, without bleeding; R00.0 Tachycardia, unspecified; D53.9 Nutritional anemia, unspecified; R50.9 Fever, unspecified; R74.0 Nonspecific elevation of levels of transaminase and lactic acid dehydrogenase [LDH]
CPT/HCPCS: 71045; 74177; 76705; 80053; 80074; 81001; 82103; 82104; 82105; 82140; 82390; 82948; 83520; 83540; 83550; 83615; 83690; 83735; 84100; 84703; 85007; 85025; 85027; 85610; 85730; 86255; 86376; 88305; 88312; 93005; 96360; 96361; J0696; J1885; J3430; J3480; J7040; Q9967